=== PATIENT | female | born 1995 | race Caucasian/White ===

== ENCOUNTER 2021-03-01 08:59 | Emergency (ER) | payer MEDICAID, SELFPAY ==
--- NOTE | ~2021-03-01 | CT_ITS ---
EXAMINATION: CT ABDOMEN AND PELVIS WITHOUT CONTRAST CLINICAL INFORMATION: Abdominal pain COMPARISON: Previous CT of the abdomen and pelvis March 2010 TECHNIQUE: Multidetector volumetric imaging was performed from the superior aspect of the liver through the pubic symphysis. Sagittal and coronal reformatted images were obtained on the technologist's workstation. This CT examination was performed using dose optimization techniques as appropriate, variously including the following: *Automated exposure control *Adjustment of mA and/or kV according to patient size (this includes techniques or standardized protocols for targeted exams where dose is matched to indication/reason for exam; i.e. extremities or head) *Use of iterative reconstruction technique DLP: 316 mGy-cm FINDINGS: LUNG BASES: The visualized lung bases are unremarkable. LIVER, GALLBLADDER, AND BILIARY TREE: The liver is normal in size, shape, and attenuation. No focal hepatic lesion or biliary ductal dilatation is present. The gallbladder is unremarkable with no evidence of radiopaque gallstones, gallbladder wall thickening, or obvious pericholecystic inflammatory changes. PANCREAS: Unremarkable. SPLEEN: Unremarkable. ADRENAL GLANDS: Unremarkable. KIDNEYS AND URETERS: The kidneys are normal in size, shape, and attenuation. No hydronephrosis, hydroureter, or calculi seen. No perinephric stranding. BLADDER: Unremarkable. GASTROINTESTINAL TRACT: The small and large bowel are unremarkable. The appendix is unremarkable. ABDOMINAL WALL: No significant hernia is appreciated. LYMPH NODES: Normal. VASCULAR: Unremarkable. PELVIC VISCERA: There is an IUD in the uterus. The position of the IUD may be slightly high. Uterus and adnexa are otherwise unremarkable. No fluid is seen in the pelvis. OSSEOUS STRUCTURES: Unremarkable. CT/CT abdomen pelvis wo con IMPRESSION: IUD in the uterus. The position of the IUD may be slightly high. Otherwise unremarkable exam. Fleischner guidelines were followed.
[2021-03-01 09:07] VITALS: BP 135/96; PULSE 100; RESP 19; TEMP 36.6; O2SAT 99; BMI 19.5
[2021-03-01] MEDS: Ondansetron ODT 4 MG TAB.RAPDIS TRANSLINGU (10:30)
[2021-03-01 10:53] LABS: MANUAL DIFF FLAG NO
[2021-03-01 11:01] LABS: Basophils Absolute Auto 0.1 X10*3/uL (0.0-0.2); Basophils Percent Auto 0.4 % (0-2); Eosinophils Percent Auto 0.1 % (0-4); Hematocrit 40.3 % (37.0-47.0); Hemoglobin 13.9 g/dl (12.0-16.0); Imm Gran Abs Auto 0.04 X10*3/uL (0.00-0.03); Imm Gran Pct Auto 0.3 % (0.0-0.4); Lymphocytes Absolute Auto 1.4 X10*3/uL (1.2-4.9); Lymphocytes Percent Auto 11.3 % (20-40); Mean Corpuscular HGB Conc 34.5 g/dl (31.0-35.0); Mean Corpuscular Hemoglobin 31.4 pg (27.0-33.0); Monocytes Absolute Auto 0.3 X10*3/uL (0.1-1.2); Monocytes Percent Auto 2.7 % (2-11); Neutrophils Absolute Auto 10.4 x10*3/uL (2.0-8.3); Neutrophils Percent Auto 85.2 % (45-73); Platelet Count 257 X10*3/uL (160-400); Red Blood Count 4.43 X10*6/uL (4.20-5.50); Red Cell Distribution Width 12.3 % (11.0-16.0); White Blood Count 12.2 X10*3/uL (4.8-10.8)
[2021-03-01 11:12] LABS: COVID-19 Test Negative (Negative); IDNOW Serial# 9DD0AD1C
[2021-03-01 11:34] LABS: Alanine Aminotransferase 12 U/L (0-31); Albumin Level 4.6 g/dL (3.5-5.0); Alkaline Phosphatase 61 U/L (39-117); Anion Gap 17 (12-20); Aspartate Amino Transferase 18 U/L (5-31); Bilirubin Direct 0.4 mg/dL (0.0-0.5); Bilirubin Total 0.8 mg/dL (0.0-1.0); Blood Urea Nitrogen 16 mg/dL (9-16); Calcium 10.1 mg/dL (8.4-10.2); Carbon Dioxide 19 mmol/L (22-29); Chloride 106 mmol/L (96-108); Creatinine Clr Calc Pharmacy 81.9; Estimated Glomerular Filt Rate > 60; Glucose Random 140 mg/dL (60-115); Lipase 11 U/L (8-78); Potassium 3.9 mmol/L (3.3-5.1); Sodium 138 mmol/L (135-145); Total Protein 7.5 g/dL (6.5-8.0)
--- NOTE | 2021-03-01 13:09 | ED.GENADULT ---
HPI - General Adult General Chief complaint: Nausea/Vomiting/Diarrhea Stated complaint: vomiting Time Seen by Provider: 03/01/21 09:54 Source: patient and RN notes reviewed Mode of arrival: ambulatory Limitations: no limitations History of Present Illness HPI narrative: 25 years old female is here today for complaining of nausea and vomiting. Patient reports that she went out last night had 2 margaritas, pizza and during the night patient reports that she started vomiting and having a diarrhea with diffuse abdominal cramping. Patient reports that she has been under a lot of stress, just recently lost her job and broke up with her boyfriend. Patient moved back to her parent's house to her old bedroom. Patient denies any SI or HI. Denies any fever or chills. Denies any ill contacts. Patient reports that she moves her bowels daily except for when she started having diarrhea last night. Patient reports that she vomited several times. Denies any melena, hematochezia, unintentional weight loss or ribbon like stools. Patient denies any urinary symptoms. Patient denies any chest pain, palpitations, presyncope or syncope. Onset (ago): hour(s) Location: abdomen Radiation: non-radiation Severity: moderate Severity scale (1-10): 9 Quality: burning Pain Consistency: intermittent Relieving factors: none Exacerbating factors: none Related Data Previous Rx's Medication Instructions Recorded nitrofurantoin macrocrystal 100 mg 100 mg PO BID #20 cap 03/01/21 capsule ondansetron 4 mg disintegrating 4 mg PO Q8H PRN #20 tab 03/01/21 tablet Allergies Allergy/AdvReac Type Severity Reaction Status Date / Time amoxicillin [AMOXICILLIN] Allergy Unknown RASH Verified 03/01/21 14:43 Iodinated Contrast Media Allergy Unknown Verified 03/01/21 14:43 shellfish derived Allergy Unknown Verified 03/01/21 14:43 Review of Systems Review of Systems: Constitutional : No Weight loss, No Fever, No Chills, No Night Sweats, No Fatigue, No Malaise ENT/Mouth : No Hearing loss, No Ear Pain, No Nasal Congestion, No Sinus Pain, No Hoarseness, No sore throat, No Rhinorrhea, No Swallowing Difficulty Eyes: No Eye Pain, No Swelling, No Redness, No Foreign Body, No Discharge, No Vision Changes Cardiovascular : No Chest Pain, No SOB, No Dyspnea on Exertion, No Orthopnea, No Edema, No Palpitations Respiratory : No Cough, No Sputum, No Wheezing, No Smoke Exposure, No Dyspnea Gastrointestinal : Nausea, Vomiting, Diarrhea, No Constipation, abdominal Pain, No Hematochezia, No Melena Genitourinary : no irregular bleeding, No Dysuria, No Urinary Frequency, No Hematuria, No Urinary Incontinence, No Urgency, No Flank Pain, No Urinary Flow Changes, No Hesitancy Musculoskeletal : No joint pain, No Myalgias, No Joint Swelling Skin : No Skin Lesions, No rash Neuro : No Weakness, No Numbness, No Paresthesias, No Loss of Consciousness, No Dizziness, No Headache Psych : No Anxiety/Panic, No Depression, No SI/HI/AH/VH, No Social Issues, Yes all other systems are reviewed and are negative [facility] Social History Social History Alcohol intake: never Patient Tobacco Use Status: Never used Tobacco Substance Use Type: Marijuana Advance Directives: No Advance Directives Information Provided: No Physical Exam Vital Signs: Vital Signs: Last Vital Signs Temp 98.6 F 03/01/21 16:21 Pulse 85 03/01/21 16:21 Resp 16 03/01/21 16:21 BP 141/97 H 03/01/21 16:21 Pulse Ox 100 03/01/21 16:21 BMI result Body Mass Index 19.5 Const: General: healthy appearing, no acute distress and well developed Nutritional Appearance: well nourished Orientation/consciousness: patient oriented x3 HENMT: Head: Yes normal to inspection, Yes normocephalic and Yes atraumatic Face and sinus: Yes normal facial exam Mouth: Normal oral and palatal mucosa present Throat: Yes posterior oropharynx normal, Yes tonsils normal and Yes uvula midline Eyes: General: appearance normal, both eyes and all related structures Neck: Neck: Yes normal visual inspection, Yes full ROM and Yes trachea midline Thyroid: Thyroid normal Resp: Effort & Inspection: normal respiratory effort, able to speak in complete sentences, no tracheal deviation and symmetric chest movement Auscultation: clear to auscultation bilaterally Cardio: Jugular venous distension: no JVD Rate: regular rate Heart sounds: S1 normal heart sound present, S2 normal heart sound present, no gallops and no murmurs GI: Inspection: Yes normal to inspection and No distended Palpation (GI): Soft to palpation, not firm, Tenderness to palpation present (GI) (Whole abdomen) and No hepatosplenomegaly present Auscultation: normal bowel sounds : General: Yes no CVA tenderness Back/Spine/Pelvis: Back: no CVA tenderness Skin: General skin exam: elasticity normal, turgor normal and dry skin Neuro: General: patient oriented x3 Psych: Appearance: grossly normal Mental Status: mental status grossly normal Speech and movement: Normal speech and movement present Affect: normal affect Attitude: cooperative Thought process: Normal thought process present Thought content: Normal thought content present Insight: Good insight present (Psych) Judgement: Good judgement present (Psych) Course Course Course Narrative: 25 year old female is here today with nausea, vomiting, diarrhea. Patient went out last night eat pizza and had 2 margaritas woke up in the middle of the night with vomiting. Patient also had diarrhea several times. Denies any urinary symptoms. Patient reports that she smoked marijuana last night as well. Reports of diffuse abdominal pain in her whole abdomen. Patient reports that she smoked marijuana in the past and never felt like that. Patient recently going under lot of stress, losing her job breaking up with her boyfriend and moving back to her parent's house to her old bedroom. Labs done in the waiting room, patient has mild leukocytosis WBC 12.2 most likely from vomiting. For lipase is negative. All other labs are unremarkable. Will check patient's urine, give her Zofran and Protonix and fluids. Patient unable to urinate. Reports that she feels dehydrated Reevaluation(s) Reevaluation #1: Urinalysis back, positive high nitrate, 3+ urine bacteria, will treat her with Macrodantin, exam was negative for CVA tenderness. Patient reports that she is feeling better, however continues to have diffuse abdominal pain. Will do abdominal and pelvic CT scan. Rule out diverticulitis, colitis. Negative McBurney and You sign. Reevaluation #2: CT scan negative for any acute findings. Patient continues to feel nauseous, will give her Reglan 5 mg IV. Then GI cocktail Reevaluation #3: Will medicate her with another dose of Zofran for nausea. No active vomiting. Patient was able to tolerate p.o. fluids and medication. Patient will be discharged home. Spoke with patient's mom per patient's permission and she will come and pick her up. Encourage patient to take Zofran on as needed basis. Patient was educated to finish all of her antibiotics. She was encouraged to return to emergency department if she continues to vomit. Discussed with patient avoidance of smoking marijuana Medical Decision Making Lab Data Result diagrams: 03/01/21 10:46 03/01/21 10:46 Labs: Lab Results 03/01/21 03/01/21 03/01/21 Range/Units 10:46 10:46 10:46 WBC 12.2 H (4.8-10.8) X10*3/uL RBC 4.43 (4.20-5.50) X10*6/uL Hgb 13.9 (12.0-16.0) g/dl Hct 40.3 (37.0-47.0) % MCV 91.0 (80.0-98.0) fL MCH 31.4 (27.0-33.0) pg MCHC 34.5 (31.0-35.0) g/dl RDW 12.3 (11.0-16.0) % Plt Count 257 (160-400) X10*3/uL MPV 12.0 (9.4-12.3) fL Immature Gran % (Auto) 0.3 (0.0-0.4) % Neut % (Auto) 85.2 H (45-73) % Lymph % (Auto) 11.3 L (20-40) % [place] % (Auto) 2.7 (2-11) % Eos % (Auto) 0.1 (0-4) % Baso % (Auto) 0.4 (0-2) % Lymph # (Auto) 1.4 (1.2-4.9) X10*3/uL [place] # (Auto) 0.3 (0.1-1.2) X10*3/uL Eos # (Auto) 0.0 (0.0-0.4) X10*3/uL Baso # (Auto) 0.1 (0.0-0.2) X10*3/uL Abs Immat Gran (auto) 0.04 H (0.00-0.03) X10*3/uL Absolute Neuts (auto) 10.4 H (2.0-8.3) x10*3/uL Absolute Nucleated RBC 0.000 (0.0-0.012) X10*3/uL Nucleated RBC % (auto) 0.0 (0.0-0.2) /100WBC Sodium 138 (135-145) mmol/L Potassium 3.9 (3.3-5.1) mmol/L Chloride 106 (96-108) mmol/L Carbon Dioxide 19 L (22-29) mmol/L Anion Gap 17 (12-20) BUN 16 (9-16) mg/dL Creatinine 0.82 (0.5-1.4) mg/dL Estim Creat Clear Calc 81.9 Estimated GFR > 60 Random Glucose 140 H (60-115) mg/dL Calcium 10.1 (8.4-10.2) mg/dL Total Bilirubin 0.8 (0.0-1.0) mg/dL Direct Bilirubin 0.4 (0.0-0.5) mg/dL AST 18 (5-31) U/L ALT 12 (0-31) U/L Alkaline Phosphatase 61 (39-117) U/L Total Protein 7.5 (6.5-8.0) g/dL Albumin 4.6 (3.5-5.0) g/dL Lipase 11 (8-78) U/L Urine Color Urine Appearance Urine pH (5.0-8.0) Ur Specific [place] (1.005-1.025) Urine Protein (NEG-TRACE) MG/DL Urine Glucose (UA) (NEG) MG/DL Urine Ketones (NEG) MG/DL Urine Blood (NEG) Urine Nitrite (NEG) Ur Leukocyte Esterase (NEG) Urine RBC (0) /HPF Urine WBC (0-4) /HPF Ur Squamous Epith Cells /LPF Urine Bacteria /LPF Urine Mucus /LPF Urine Test (NEGATIVE) COVID-19 (RD) Negative (Negative) COVID-19 Clin Com See Note 03/01/21 03/01/21 03/01/21 Range/Units 15:27 15:27 15:42 WBC (4.8-10.8) X10*3/uL RBC (4.20-5.50) X10*6/uL Hgb (12.0-16.0) g/dl Hct (37.0-47.0) % MCV (80.0-98.0) fL MCH (27.0-33.0) pg MCHC (31.0-35.0) g/dl RDW (11.0-16.0) % Plt Count (160-400) X10*3/uL MPV (9.4-12.3) fL Immature Gran % (Auto) (0.0-0.4) % Neut % (Auto) (45-73) % Lymph % (Auto) (20-40) % [place] % (Auto) (2-11) % Eos % (Auto) (0-4) % Baso % (Auto) (0-2) % Lymph # (Auto) (1.2-4.9) X10*3/uL [place] # (Auto) (0.1-1.2) X10*3/uL Eos # (Auto) (0.0-0.4) X10*3/uL Baso # (Auto) (0.0-0.2) X10*3/uL Abs Immat Gran (auto) (0.00-0.03) X10*3/uL Absolute Neuts (auto) (2.0-8.3) x10*3/uL Absolute Nucleated RBC (0.0-0.012) X10*3/uL Nucleated RBC % (auto) (0.0-0.2) /100WBC Sodium (135-145) mmol/L Potassium (3.3-5.1) mmol/L Chloride (96-108) mmol/L Carbon Dioxide (22-29) mmol/L Anion Gap (12-20) BUN (9-16) mg/dL Creatinine (0.5-1.4) mg/dL Estim Creat Clear Calc Estimated GFR Random Glucose (60-115) mg/dL Calcium (8.4-10.2) mg/dL Total Bilirubin (0.0-1.0) mg/dL Direct Bilirubin (0.0-0.5) mg/dL AST (5-31) U/L ALT (0-31) U/L Alkaline Phosphatase (39-117) U/L Total Protein (6.5-8.0) g/dL Albumin (3.5-5.0) g/dL Lipase (8-78) U/L Urine Color YELLOW Urine Appearance CLOUDY Urine pH 6.5 (5.0-8.0) Ur Specific [place] 1.020 (1.005-1.025) Urine Protein NEG (NEG-TRACE) MG/DL Urine Glucose (UA) NEG (NEG) MG/DL Urine Ketones >=80 (NEG) MG/DL Urine Blood TRACE (NEG) Urine Nitrite POS H (NEG) Ur Leukocyte Esterase NEG (NEG) Urine RBC 0-2 (0) /HPF Urine WBC 0-2 (0-4) /HPF Ur Squamous Epith Cells 1+ /LPF Urine Bacteria 3+ /LPF Urine Mucus 1+ /LPF Urine Test NEGATIVE Cancelled (NEGATIVE) COVID-19 (RD) (Negative) COVID-19 Clin Com Imaging Data CT scan - abdomen: Attestation: I personally reviewed and interpreted this imaging study as follows: Radiologist's impression: FINDINGS: LUNG BASES: The visualized lung bases are unremarkable.? LIVER, GALLBLADDER, AND BILIARY TREE: The liver is normal in size, shape, and attenuation. No focal hepatic lesion or biliary ductal dilatation is present. The gallbladder is unremarkable with no evidence of radiopaque gallstones, gallbladder wall thickening, or obvious pericholecystic inflammatory changes.? PANCREAS: Unremarkable.? SPLEEN: Unremarkable.? ADRENAL GLANDS: Unremarkable.? KIDNEYS AND URETERS: The kidneys are normal in size, shape, and attenuation. No hydronephrosis, hydroureter, or calculi seen. No perinephric stranding. ? BLADDER: Unremarkable.? GASTROINTESTINAL TRACT: The small and large bowel are unremarkable. The appendix is unremarkable.? ABDOMINAL WALL: No significant hernia is appreciated.? LYMPH NODES: Normal. VASCULAR: Unremarkable. PELVIC VISCERA: There is an IUD in the uterus. The position of the IUD may be slightly high. Uterus and adnexa are otherwise unremarkable. No fluid is seen in the pelvis. OSSEOUS STRUCTURES: Unremarkable.? Discharge Plan Discharge Clinical Impression: UTI (urinary tract infection) Qualifiers: Urinary tract infection type: site unspecified Hematuria presence: without hematuria Qualified Code(s): N39.0 - Urinary tract infection, site not specified Gastritis Qualifiers: Gastritis type: unspecified gastritis Chronicity: acute Gastritis bleeding: without bleeding Qualified Code(s): K29.00 - Acute gastritis without bleeding Patient Disposition: Home, Self-Care Instructions: Gastritis (ED), Urinary Tract Infection in Women (ED) Additional Instructions: You were seen here today for nausea and vomiting and abdominal discomfort. You were given nausea medication. Your urine test showed that you have a urinary tract infection. You were given 1st dose of antibiotics in the emergency department. You will be sent home on antibiotics twice a day for 10 days. Make sure that you finish all of the antibiotics. CT scan showed no acute processes. Please follow-up with your primary care doctor. An your OBGYN provider. CT scan showed that your IUD position might be slightly too high. You will be given nausea medicine to take every 8 hours as needed. Make sure you drinking plenty fluids. Please return to emergency department if you cannot tolerate any fluids or unable to take your antibiotics. Prescriptions: New nitrofurantoin macrocrystal 100 mg capsule 100 mg PO BID Qty: 20 RF: 0 ondansetron 4 mg tablet,disintegrating 4 mg PO Q8H PRN (Reason: nausea and vomiting) Qty: 20 RF: 0 Interventions: ED Discharge Assessment Last Done: 03/01/21 21:07 Discharge Date/Time: 03/01/21 21:09
[2021-03-01] MEDS: 0.9 % Sodium Chloride 1,000 ML 999 ML IV ×2 (13:33→17:50)
[2021-03-01 13:44] VITALS: BP 142/93; PULSE 94; RESP 16; TEMP 37.4; O2SAT 99
[2021-03-01] MEDS: Pantoprazole Sodium 40 MG/10 ML VIAL IVPUSH (14:39)
[2021-03-01 14:42] VITALS: BP 140/83; PULSE 94; RESP 18; TEMP 36.6; O2SAT 98
--- NOTE | 2021-03-01 14:43 | PC.NURSE ---
skin pwd. no longer actively vomiting. moist mm. abd soft non tender
[2021-03-01] MEDS: ondansetron HCL 4 MG/2 ML VIAL IVPUSH ×2 (14:46→20:36)
[2021-03-01 15:36] LABS: Appearance Urine CLOUDY; Color Urine YELLOW; Glucose Urine UA NEG (NEG); Leukocyte Esterase Urine NEG (NEG); Nitrite Urine POS (NEG); PH 6.5 (5.0-8.0); UACC Culture Trigger YES; Urine Blood TRACE (NEG); Urine Ketones >=80 MG/DL (NEG); Urine Protein NEG (NEG-TRACE)
[2021-03-01 15:40] LABS: Urine Pregnancy NEGATIVE (NEGATIVE)
[2021-03-01 15:41] LABS: UPreg QC Valid YES
[2021-03-01 15:47] LABS: Bacteria Urine 3+ /LPF; Mucus Urine 1+ /LPF; RBC Urine 0-2 /HPF (0); Squamous Epithelial Cell Urine 1+ /LPF; WBC Urine 0-2 /HPF (0-4)
[2021-03-01 16:21] VITALS: BP 141/97; PULSE 85; RESP 16; TEMP 37; O2SAT 100
--- NOTE | 2021-03-01 16:55 | PC.NURSE ---
continues to vomit. tried some po fluids from home but didn't pass po challenge. this rn requesting additional nausea meds from provider.
[2021-03-01] MEDS: nitrofurantoin macrocrystaL 50 MG CAPSULE 100 MG PO (17:50)
[2021-03-01] MEDS: Metoclopramide HCl 10 MG/2 ML VIAL 5 MG IVPUSH (17:50)
--- NOTE | 2021-03-01 18:28 | PC.NURSE ---
reports slight improvement
[2021-03-01] MEDS: Magnesium Hydrox/Alum Hydrox 30 ML ORAL.SUSP 15 ML PO (19:38)
[2021-03-01] MEDS: Lidocaine HCl Viscous 2 % 15 ML SOLUTION MUCOUS MEM (19:39)
== END 2021-03-01 21:09 | disposition home or self-care (01) ==
PROVIDERS: Nurse Practitioner Family; Emergency Provider Internal Medicine
DX: N39.0 Urinary tract infection, site not specified (principal); K29.00 Acute gastritis without bleeding; Z20.822 Contact with and (suspected) exposure to COVID-19; R11.2 Nausea with vomiting, unspecified; F12.90 Cannabis use, unspecified, uncomplicated
CPT/HCPCS: 74176; 80048; 80076; 81001; 81025; 83690; 85025; 87086; 87635; 96361; 96374; 96375; 96376; 99284; J2405; J2765

== ENCOUNTER 2021-03-02 08:41 | Emergency (ER) | payer MEDICAID, SELFPAY ==
[2021-03-02 09:08] VITALS: RESP 14; BMI 20.1
--- NOTE | 2021-03-02 09:12 | ECG_ITS ---
Test Reason : chest pain Blood Pressure : / mmHG Vent. Rate : 090 BPM Atrial Rate : 090 BPM P-R Int : 192 ms QRS Dur : 078 ms QT Int : 374 ms P-R-T Axes : 069 079 056 degrees QTc Int : 457 ms Normal sinus rhythm with sinus arrhythmia Normal ECG No previous ECGs available Referred By: Generic ED Physician Electronically Signed By:Ruben Ignacio
[2021-03-02] MEDS: Ondansetron ODT 4 MG TAB.RAPDIS TRANSLINGU (09:16)
[2021-03-02 09:17] VITALS: BP 150/67; PULSE 103; RESP 14; TEMP 37.2; O2SAT 100
[2021-03-02 09:27] LABS: MANUAL DIFF FLAG NO
[2021-03-02 09:28] LABS: Basophils Percent Auto 0.1 % (0-2); Hematocrit 40.3 % (37.0-47.0); Imm Gran Abs Auto 0.05 X10*3/uL (0.00-0.03); Imm Gran Pct Auto 0.4 % (0.0-0.4); Lymphocytes Absolute Auto 1.3 X10*3/uL (1.2-4.9); Lymphocytes Percent Auto 9.6 % (20-40); Mean Corpuscular HGB Conc 34.7 g/dl (31.0-35.0); Mean Corpuscular Hemoglobin 31.1 pg (27.0-33.0); Mean Corpuscular Volume 89.6 fL (80.0-98.0); Mean Platelet Volume 11.5 fL (9.4-12.3); Monocytes Absolute Auto 0.7 X10*3/uL (0.1-1.2); Monocytes Percent Auto 5.2 % (2-11); Neutrophils Absolute Auto 11.7 x10*3/uL (2.0-8.3); Neutrophils Percent Auto 84.7 % (45-73); Platelet Count 253 X10*3/uL (160-400); Red Cell Distribution Width 12.2 % (11.0-16.0); White Blood Count 13.8 X10*3/uL (4.8-10.8)
[2021-03-02 09:41] LABS: Anion Gap 17 (12-20); Blood Urea Nitrogen 17 mg/dL (9-16); Calcium 9.9 mg/dL (8.4-10.2); Carbon Dioxide 21 mmol/L (22-29); Chloride 104 mmol/L (96-108); Estimated Glomerular Filt Rate > 60; Glucose Random 93 mg/dL (60-115); Sodium 138 mmol/L (135-145)
== END 2021-03-02 14:57 | disposition left against medical advice (07) ==
PROVIDERS: Emergency Provider Emergency Medicine
DX: R10.9 Unspecified abdominal pain (principal); R07.89 Other chest pain; R11.2 Nausea with vomiting, unspecified; Z79.899 Other long term (current) drug therapy
CPT/HCPCS: 36415; 80048; 85025; 93005; 99283

== ENCOUNTER 2021-03-03 07:38 | Emergency (ER) | payer MEDICAID, SELFPAY ==
--- NOTE | ~2021-03-03 | US_ITS ---
EXAMINATION: APPENDIX ULTRASOUND CLINICAL INFORMATION: Periumbilical and right lower quadrant pain COMPARISON: Previous CT of the abdomen and pelvis 03/01/2021 TECHNIQUE: Grayscale and color imaging of the right lower quadrant FINDINGS: The appendix is not identified. No abnormal loops of bowel ascites or adenopathy is seen. The right ovary and right kidney are normal appearing. US/US appendix IMPRESSION: Appendix not seen by ultrasound.
[2021-03-03 08:02] VITALS: BP 137/95; PULSE 83; RESP 16; TEMP 36.8; O2SAT 95; BMI 20.1
--- NOTE | 2021-03-03 09:09 | ED.ABDPAIN ---
HPI - Abdominal Pain General Chief Complaint: Abdominal Pain Stated Complaint: Nausea/vomiting Time Seen by Provider: 03/03/21 08:56 Source: patient Mode of arrival: ambulatory Limitations: no limitations History of Present Illness HPI narrative: 25 y/o female presenting to the ER for 3rd day in a row with nausea, vomiting and periumbilical abdominal pain. She was seen here on 03/01 and 03/02 - had negative CT abdomen with labs showing mild leukocytosis and UA showing infection. She was discharged with Macrobid and Zofran but has not been able to consistently take the antibiotic because of vomiting. She denies fevers but reports chills. She has not been able to tolerate anything by mouth in the last 3 days. She has been taking the Zofran without effect. No known sick contacts. No one else at home is ill. She also reports multiple episodes of diarrhea yesterday as well, nonbloody. MD elicited complaint: abdominal pain Pertinent past history: none Onset (ago): day(s) (3) Pain Consistency: constant Location: periumbilical Severity: severe Quality: stabbing Radiation: LLQ and RLQ Migration to: no migration Exacerbating factors: eating Relieving factors: nothing Associated symptoms: nausea, vomiting, diarrhea and chills Related Data Patient : No Previous Rx's Medication Instructions Recorded nitrofurantoin macrocrystal 100 mg 100 mg PO BID #20 cap 03/01/21 capsule ondansetron 4 mg disintegrating 4 mg PO Q8H PRN #20 tab 03/01/21 tablet metoclopramide HCl 5 mg tablet 5 mg PO Q6H PRN #10 tab 03/03/21 (Reglan) Allergies Allergy/AdvReac Type Severity Reaction Status Date / Time amoxicillin [AMOXICILLIN] Allergy Unknown RASH Verified 03/01/21 14:43 Iodinated Contrast Media Allergy Unknown Verified 03/01/21 14:43 shellfish derived Allergy Unknown Verified 03/01/21 14:43 Review of Systems Review of Systems Constitutional: No Fever, + Chills ENT/Mouth: No sore throat, No Rhinorrhea, No Swallowing Difficulty Cardiovascular: No Chest Pain, No SOB, No Orthopnea, No Edema Respiratory: No Cough, No Sputum, No Wheezing, No dyspnea Gastrointestinal: + Nausea, + Vomiting, + Diarrhea, + abdominal Pain, No Hematochezia, No Melena Genitourinary: No Dysuria, No Urinary Frequency, No Hematuria Musculoskeletal: No joint pain, No Myalgias Skin: No Skin Lesions, No rash Neuro: No Weakness, No Numbness, No Dizziness, No Headache Psych: No Anxiety/Panic, No Depression Heme/Lymph: No Bruising, No Lymphadenopathy Endocrine: No Polyuria, No Polydipsia Physical Exam Vital Signs: Vital Signs: Last Vital Signs Temp 99.3 F 03/03/21 11:13 Pulse 92 03/03/21 11:13 Resp 18 03/03/21 11:13 BP 135/94 H 03/03/21 11:13 Pulse Ox 100 03/03/21 11:13 BMI result Body Mass Index 20.1 Appearance: Alert. Oriented X3. Appears to be in pain Eyes: Pupils equal, round and reactive to light. ENT: Pharynx normal. Neck: Normal inspection. Neck supple. CVS: Normal heart rate and rhythm. Pulses normal. Respiratory: No respiratory distress. Breath sounds normal. Abdomen: Soft with periumbilical and RLQ tenderness with guarding, no rebound. normal +BS x4 Skin: Skin warm and dry. Normal skin color. Normal skin turgor. No rashes. Extremities: No lower extremity edema. Neuro: Oriented X 3. No motor deficit. No sensory deficit. Course Course Course Narrative: 25 y/o female presenting to the ER with N/V/D and abdominal pain x3 days. She had a negative CT 03/01 and a +UA. Her labs did show a leukocytosis of 13.8. She has lower abdominal tenderness including RLQ >LLQ. CT did not show any appendix inflammatory changes. Will get follow up ultrasound to further assess. Reevaluation(s) Reevaluation #1: Labs today showing improved WBC 11.5. No further vomiting. She was given Reglan and morphine with good effect. UA negative for infection. She is feeling better. Trying ice chips. Reevaluation #2: Patient is tolerating PO. Most likely gastroenteritis. She is stable for d/c home with supportive care - will give her rx for reglan as zofran has been ineffective at home. MDM - Abdominal Pain Lab Data Result diagrams: 03/03/21 09:22 03/03/21 09:22 Labs: Lab Results 01/24/22 01/24/22 01/24/22 Range/Units 09:21 09:22 09:22 WBC 11.5 H (4.8-10.8) X10*3/uL RBC 4.62 (4.20-5.50) X10*6/uL Hgb 15.1 (12.0-16.0) g/dl Hct 42.6 (37.0-47.0) % MCV 92.2 (80.0-98.0) fL MCH 32.7 (27.0-33.0) pg MCHC 35.4 H (31.0-35.0) g/dl RDW 12.6 (11.0-16.0) % Plt Count 211 (160-400) X10*3/uL MPV 11.3 (9.4-12.3) fL Immature Gran % (Auto) 0.3 (0.0-0.4) % Neut % (Auto) 83.2 H (45-73) % Lymph % (Auto) 11.1 L (20-40) % [place] % (Auto) 5.1 (2-11) % Eos % (Auto) 0.0 (0-4) % Baso % (Auto) 0.3 (0-2) % Lymph # (Auto) 1.3 (1.2-4.9) X10*3/uL [place] # (Auto) 0.6 (0.1-1.2) X10*3/uL Eos # (Auto) 0.0 (0.0-0.4) X10*3/uL Baso # (Auto) 0.0 (0.0-0.2) X10*3/uL Abs Immat Gran (auto) 0.04 H (0.00-0.03) X10*3/uL Absolute Neuts (auto) 9.6 H (2.0-8.3) x10*3/uL Absolute Nucleated RBC 0.000 (0.0-0.012) X10*3/uL Nucleated RBC % (auto) 0.0 (0.0-0.2) /100WBC Sodium 138 (135-145) mmol/L Potassium 3.4 (3.3-5.1) mmol/L Chloride 102 (96-108) mmol/L Carbon Dioxide 23 (22-29) mmol/L Anion Gap 16 (12-20) BUN 23 H (9-16) mg/dL Creatinine 0.89 (0.5-1.4) mg/dL Estim Creat Clear Calc 75.4 Estimated GFR > 60 Random Glucose 86 (60-115) mg/dL Calcium 9.5 (8.4-10.2) mg/dL Magnesium 2.4 (1.6-2.6) mg/dL Total Bilirubin 1.8 H (0.0-1.0) mg/dL Direct Bilirubin 0.6 H (0.0-0.5) mg/dL AST 19 (5-31) U/L ALT 13 (0-31) U/L Alkaline Phosphatase 58 (39-117) U/L Total Protein 7.5 (6.5-8.0) g/dL Albumin 4.6 (3.5-5.0) g/dL Lipase 14 (8-78) U/L Urine Color Urine Appearance Urine pH (5.0-8.0) Ur Specific [place] (1.005-1.025) Urine Protein (NEG-TRACE) MG/DL Urine Glucose (UA) (NEG) MG/DL Urine Ketones (NEG) MG/DL Urine Blood (NEG) Urine Nitrite (NEG) Ur Leukocyte Esterase (NEG) Urine RBC (0) /HPF Urine WBC (0-4) /HPF Ur Squamous Epith Cells /LPF Urine Bacteria /LPF Urine Mucus /LPF Urine Test (NEGATIVE) Urine Opiates Screen (Not Detect) Urine Fentanyl Screen (Not Detect) Ur Barbiturates Screen (Not Detect) Ur Phencyclidine Scrn (Not Detect) Ur Amphetamines Screen (Not Detect) U Benzodiazepines Scrn (Not Detect) Urine Cocaine Screen (Not Detect) U Marijuana (THC) Screen (Not Detect) COVID-19 (RD) Negative (Negative) COVID-19 Clin Com See Note 03/03/21 03/03/21 03/03/21 Range/Units 11:22 11:22 11:22 WBC (4.8-10.8) X10*3/uL RBC (4.20-5.50) X10*6/uL Hgb (12.0-16.0) g/dl Hct (37.0-47.0) % MCV (80.0-98.0) fL MCH (27.0-33.0) pg MCHC (31.0-35.0) g/dl RDW (11.0-16.0) % Plt Count (160-400) X10*3/uL MPV (9.4-12.3) fL Immature Gran % (Auto) (0.0-0.4) % Neut % (Auto) (45-73) % Lymph % (Auto) (20-40) % [place] % (Auto) (2-11) % Eos % (Auto) (0-4) % Baso % (Auto) (0-2) % Lymph # (Auto) (1.2-4.9) X10*3/uL [place] # (Auto) (0.1-1.2) X10*3/uL Eos # (Auto) (0.0-0.4) X10*3/uL Baso # (Auto) (0.0-0.2) X10*3/uL Abs Immat Gran (auto) (0.00-0.03) X10*3/uL Absolute Neuts (auto) (2.0-8.3) x10*3/uL Absolute Nucleated RBC (0.0-0.012) X10*3/uL Nucleated RBC % (auto) (0.0-0.2) /100WBC Sodium (135-145) mmol/L Potassium (3.3-5.1) mmol/L Chloride (96-108) mmol/L Carbon Dioxide (22-29) mmol/L Anion Gap (12-20) BUN (9-16) mg/dL Creatinine (0.5-1.4) mg/dL Estim Creat Clear Calc Estimated GFR Random Glucose (60-115) mg/dL Calcium (8.4-10.2) mg/dL Magnesium (1.6-2.6) mg/dL Total Bilirubin (0.0-1.0) mg/dL Direct Bilirubin (0.0-0.5) mg/dL AST (5-31) U/L ALT (0-31) U/L Alkaline Phosphatase (39-117) U/L Total Protein (6.5-8.0) g/dL Albumin (3.5-5.0) g/dL Lipase (8-78) U/L Urine Color YELLOW Urine Appearance CLEAR Urine pH 6.0 (5.0-8.0) Ur Specific [place] >= 1.030 H (1.005-1.025) Urine Protein TRACE (NEG-TRACE) MG/DL Urine Glucose (UA) NEG (NEG) MG/DL Urine Ketones >=80 (NEG) MG/DL Urine Blood TRACE (NEG) Urine Nitrite NEG (NEG) Ur Leukocyte Esterase NEG (NEG) Urine RBC 0-2 (0) /HPF Urine WBC 1-4 (0-4) /HPF Ur Squamous Epith Cells 1+ /LPF Urine Bacteria TRACE /LPF Urine Mucus 2+ /LPF Urine Test NEGATIVE (NEGATIVE) Urine Opiates Screen POSITIVE H (Not Detect) Urine Fentanyl Screen Not Detected (Not Detect) Ur Barbiturates Screen Not Detected (Not Detect) Ur Phencyclidine Scrn Not Detected (Not Detect) Ur Amphetamines Screen Not Detected (Not Detect) U Benzodiazepines Scrn Not Detected (Not Detect) Urine Cocaine Screen Not Detected (Not Detect) U Marijuana (THC) Screen POSITIVE H (Not Detect) COVID-19 (RD) (Negative) COVID-19 Clin Com Critical Care Time Critical Care Time Critical Care Time: No Discharge Plan Discharge Clinical Impression: Gastroenteritis Patient Disposition: Home, Self-Care Instructions: Gastroenteritis (ED) Additional Instructions: Take the prescribed medication as needed for nausea and vomiting. Do not take it at the same time as the previously prescribed Zofran. Stick to a bland diet while you are not feeling well. Rest and drink plenty of fluids. Take Motrin and/or Tylenol as needed for pain. Follow up with your doctor this week. If you develop new or worsening symptoms call 911 or come back to the ER for further evaluation. Prescriptions: New metoclopramide HCl [Reglan] 5 mg tablet 5 mg PO Q6H PRN (Reason: nausea and vomiting) Qty: 10 RF: 0 No Action nitrofurantoin macrocrystal 100 mg capsule 100 mg PO BID Qty: 20 RF: 0 ondansetron 4 mg tablet,disintegrating 4 mg PO Q8H PRN (Reason: nausea and vomiting) Qty: 20 RF: 0 PMFSH Past Medical History Medical History (Updated 03/03/21 @ 13:17 by ABEL Hdz) Asthma Social History Social History Alcohol intake: never Patient Tobacco Use Status: Never used Tobacco Use of substances other than those prescribed or required for medical reasons: Yes Substance Use Type: Marijuana Substance Use Frequency: Daily Advance Directives: No Advance Directives Information Provided: No Patient : No
[2021-03-03 09:29] LABS: MANUAL DIFF FLAG NO
[2021-03-03 09:30] LABS: Basophils Percent Auto 0.3 % (0-2); Hematocrit 42.6 % (37.0-47.0); Hemoglobin 15.1 g/dl (12.0-16.0); Imm Gran Abs Auto 0.04 X10*3/uL (0.00-0.03); Imm Gran Pct Auto 0.3 % (0.0-0.4); Lymphocytes Absolute Auto 1.3 X10*3/uL (1.2-4.9); Lymphocytes Percent Auto 11.1 % (20-40); Mean Corpuscular HGB Conc 35.4 g/dl (31.0-35.0); Mean Corpuscular Hemoglobin 32.7 pg (27.0-33.0); Mean Corpuscular Volume 92.2 fL (80.0-98.0); Mean Platelet Volume 11.3 fL (9.4-12.3); Monocytes Absolute Auto 0.6 X10*3/uL (0.1-1.2); Monocytes Percent Auto 5.1 % (2-11); Neutrophils Absolute Auto 9.6 x10*3/uL (2.0-8.3); Neutrophils Percent Auto 83.2 % (45-73); Platelet Count 211 X10*3/uL (160-400); Red Blood Count 4.62 X10*6/uL (4.20-5.50); Red Cell Distribution Width 12.6 % (11.0-16.0); White Blood Count 11.5 X10*3/uL (4.8-10.8)
[2021-03-03 09:47] LABS: COVID-19 Test Negative (Negative)
[2021-03-03] MEDS: Metoclopramide HCl 10 MG/2 ML VIAL IVPUSH (09:50)
[2021-03-03] MEDS: 0.9 % Sodium Chloride 1,000 ML 999 ML IVCONT ×2 (09:50→12:00)
[2021-03-03 09:51] LABS: Alanine Aminotransferase 13 U/L (0-31); Albumin Level 4.6 g/dL (3.5-5.0); Alkaline Phosphatase 58 U/L (39-117); Anion Gap 16 (12-20); Aspartate Amino Transferase 19 U/L (5-31); Bilirubin Direct 0.6 mg/dL (0.0-0.5); Bilirubin Total 1.8 mg/dL (0.0-1.0); Blood Urea Nitrogen 23 mg/dL (9-16); Calcium 9.5 mg/dL (8.4-10.2); Carbon Dioxide 23 mmol/L (22-29); Chloride 102 mmol/L (96-108); Creatinine Clr Calc Pharmacy 75.4; Estimated Glomerular Filt Rate > 60; Glucose Random 86 mg/dL (60-115); Lipase 14 U/L (8-78); Magnesium 2.4 mg/dL (1.6-2.6); Potassium 3.4 mmol/L (3.3-5.1); Sodium 138 mmol/L (135-145); Total Protein 7.5 g/dL (6.5-8.0)
[2021-03-03] MEDS: Morphine Sulfate 4 MG/ML CARTRIDGE IVPUSH (09:55)
--- NOTE | 2021-03-03 09:56 | PC.NURSE ---
pt alert and oriented, skin appropriate for ethnicity, pt reports having nausea/vomiting/diarrhea and mid abd pain x3 days, unable to tolerate po intake according to the pt. pt is dry heaving at the bedside, pt does report smoking marijuana daily biut has not smoked the last 4 days
--- NOTE | 2021-03-03 10:58 | PC.NURSE ---
pt resting with her eyes shut, reports feeling better pain at 5/10, no dry heaving at this time
[2021-03-03 11:13] VITALS: BP 135/94; PULSE 92; RESP 18; TEMP 37.4; O2SAT 100
[2021-03-03 11:35] LABS: Appearance Urine CLEAR; Color Urine YELLOW; Glucose Urine UA NEG (NEG); Leukocyte Esterase Urine NEG (NEG); Nitrite Urine NEG (NEG); Specific Gravity - Urine >= 1.030 (1.005-1.025); UACC Culture Trigger NO; Urine Blood TRACE (NEG); Urine Ketones >=80 MG/DL (NEG); Urine Protein TRACE MG/DL (NEG-TRACE)
[2021-03-03 11:43] LABS: UPreg QC Valid YES; Urine Pregnancy NEGATIVE (NEGATIVE)
[2021-03-03 11:48] LABS: Amphetamine Screen Urine Not Detected (Not Detect); Barbiturates, Urine Not Detected (Not Detect); Benzodiazepines Screen Urine Not Detected (Not Detect); Cannabinoid Screen Urine POSITIVE (Not Detect); Cocaine Screen Urine Not Detected (Not Detect); Fentanyl, urine Not Detected (Not Detect); Opiate Screen Urine POSITIVE (Not Detect); Phencyclidine Screen Urine Not Detected (Not Detect)
[2021-03-03 11:56] LABS: Bacteria Urine TRACE /LPF; Mucus Urine 2+ /LPF; RBC Urine 0-2 /HPF (0); Squamous Epithelial Cell Urine 1+ /LPF
[2021-03-03 13:38] VITALS: BP 138/93; PULSE 95; RESP 16; O2SAT 100
== END 2021-03-03 13:40 | disposition home or self-care (01) ==
PROVIDERS: Physician Assistant; Emergency Provider Emergency Medicine
DX: K52.9 Noninfective gastroenteritis and colitis, unspecified (principal); Z20.822 Contact with and (suspected) exposure to COVID-19; R10.30 Lower abdominal pain, unspecified; F12.90 Cannabis use, unspecified, uncomplicated
CPT/HCPCS: 76705; 80048; 80076; 80307; 81001; 81025; 83690; 83735; 85025; 87635; 96361; 96374; 96375; 99284; J2270; J2765

== ENCOUNTER 2021-03-04 15:51 | Observation (INO) | payer MEDICAID, SELFPAY ==
[2021-03-04 16:15] VITALS: BP 144/89; BP 147/78; PULSE 101; PULSE 77; RESP 18; TEMP 37.2; O2SAT 100; BMI 20.1
[2021-03-04 16:18] LABS: Glucose, Whole Blood 87 mg/dL (60-115)
--- NOTE | 2021-03-04 16:27 | ED.NAVMDI ---
HPI - Nausea/Vomiting/Diarrhea General Chief complaint: Nausea/Vomiting/Diarrhea Stated complaint: abd pain Source: patient Mode of arrival: ambulatory Limitations: no limitations History of Present Illness HPI Narrative: 25-year-old female presents for intractable nausea vomiting and abdominal pain. This is her 3rd presentation in the past 3 days for similar circumstances. Patient has not been able to tolerate p.o. intake over the past 24 hours. MD elicited complaint: nausea, vomiting and abdominal pain Pertinent past history: cyclical vomiting Onset (ago): day(s) Description of vomiting: watery and bilious Associated nausea: Yes Associated abdominal pain: Yes Location of pain: diffuse Pain consistency: constant Severity: severe Pain scale (0-10): 10 Quality: cramping and aching Exacerbating factors: vomiting Relieving factors: none Context: marijuana use Associated symptoms: loss of appetite, nausea/vomiting and fatigue Related Data Previous Rx's Medication Instructions Recorded nitrofurantoin macrocrystal 100 mg 100 mg PO BID #20 cap 03/01/21 capsule ondansetron 4 mg disintegrating 4 mg PO Q8H PRN #20 tab 03/01/21 tablet metoclopramide HCl 5 mg tablet 5 mg PO Q6H PRN #10 tab 03/03/21 (Reglan) Allergies Allergy/AdvReac Type Severity Reaction Status Date / Time amoxicillin [AMOXICILLIN] Allergy Unknown RASH Verified 03/04/21 16:15 Iodinated Contrast Media Allergy Unknown Verified 03/04/21 16:15 shellfish derived Allergy Unknown Verified 03/04/21 16:15 Review of Systems Review of Systems: Constitutional: No Weight loss, No Fever, No Chills, No Night Sweats, No Fatigue, No Malaise ENT/Mouth: No Hearing loss, No Ear Pain, No Nasal Congestion, No Sinus Pain, No Hoarseness, No sore throat, No Rhinorrhea, No Swallowing Difficulty Eyes: No Eye Pain, No Swelling, No Redness, No Foreign Body, No Discharge, No Vision Changes Cardiovascular: No Chest Pain, No SOB, No Dyspnea on Exertion, No Orthopnea, No Edema, No Palpitations Respiratory: No Cough, No Sputum, No Wheezing, No Smoke Exposure, No Dyspnea Gastrointestinal: Positive Nausea, Positive Vomiting, no Diarrhea, positive abdominal Pain, No Hematochezia, No Melena Genitourinary: no irregular bleeding, No Dysuria, No Urinary Frequency, No Hematuria, No Urinary Incontinence, No Urgency, No Flank Pain, No Urinary Flow Changes, No Hesitancy Musculoskeletal: No joint pain, No Myalgias, No Joint Swelling Skin: No Skin Lesions, No rash Neuro: No Weakness, No Numbness, No Paresthesias, No Loss of Consciousness, No Dizziness, No Headache Psych: No Anxiety/Panic, No Depression, No SI/HI/AH/VH, No Social Issues Heme/Lymph: No Bruising, No Bleeding,No Lymphadenopathy Endocrine: No Polyuria, No Polydipsia, No Temperature Intolerance Yes all other systems are reviewed and are negative Gastrointestinal: Gastrointestinal: Reports nausea PMFSH Past Medical History Attestation statement: The following information was validated with the patient. Source: old records reviewed Medical History Asthma Social History Social History Alcohol intake: never Patient Tobacco Use Status: Never used Tobacco Use of substances other than those prescribed or required for medical reasons: No Substance Use Type: Marijuana Advance Directives: No Advance Directives Information Provided: No Physical Exam Vital Signs: Vital Signs: Last Vital Signs Temp 99.0 F 03/04/21 19:47 Pulse 82 03/04/21 19:47 Resp 16 03/04/21 19:47 BP 142/97 H 03/04/21 19:47 Pulse Ox 100 03/04/21 19:47 BMI result Body Mass Index 20.1 Appearance: Alert. Oriented X3. Moderate distress. In position. Eyes: Pupils equal, round and reactive to light. Sclera nonicteric. ENT: Pharynx normal. Dry mucous membranes. Neck: Normal inspection. Neck supple. No nuchal rigidity. CVS: Normal heart rate and rhythm. Pulses normal. Respiratory: No respiratory distress. Breath sounds normal. Abdomen: Soft and diffusely tender without rigidity, distention, negative You, McBurney and Rovsing. Skin: Skin warm and dry. Normal skin color. Normal skin turgor. Extremities: No lower extremity edema. Moves all extremities against resistance. Neuro: No motor deficit. No sensory deficit. Cranial nerves 2-12 intact. Course Course Course Narrative: 25-year-old female presents with recurrent nausea and vomiting. Was seen in this emergency department on 03/01/2021, 03/03/2021 and presents today with similar symptoms. States the medications were ineffective. Review of records indicates negative CT and negative ultrasound yesterday. Will repeat lab values. Will give Reglan Benadryl, sumatriptan IM, fluids and reassess. 6:30 p.m. RN updated this [employer] that patient still feels poorly. Order for Ativan 0.5 mg IV push. 7:45 p.m. patient states that she does not feel any better, discussion with hospitalist, plan is to admit for intractable nausea and vomiting. Consultations Consultation #1: Lila Time: 20:05 MDM - Nausea/Vomiting/Diarrhea Differential Diagnosis Differential diagnosis: Likely gastroenteritis, drug-induced nausea and vomiting and dehydration Medical Records Attestation: I reviewed the patient's medical records. Lab Data Attestation: I reviewed the patient's lab results. Result diagrams: 03/04/21 18:31 03/04/21 18:31 Labs: Lab Results 03/04/21 03/04/21 03/04/21 Range/Units 16:15 18:31 18:31 WBC 8.0 (4.8-10.8) X10*3/uL RBC 4.32 (4.20-5.50) X10*6/uL Hgb 13.8 (12.0-16.0) g/dl Hct 38.3 (37.0-47.0) % MCV 88.7 (80.0-98.0) fL MCH 31.9 (27.0-33.0) pg MCHC 36.0 H (31.0-35.0) g/dl RDW 11.8 (11.0-16.0) % Plt Count 221 (160-400) X10*3/uL MPV 11.4 (9.4-12.3) fL Immature Gran % (Auto) 0.4 (0.0-0.4) % Neut % (Auto) 82.9 H (45-73) % Lymph % (Auto) 11.6 L (20-40) % [place] % (Auto) 4.9 (2-11) % Eos % (Auto) 0.0 (0-4) % Baso % (Auto) 0.2 (0-2) % Lymph # (Auto) 0.9 L (1.2-4.9) X10*3/uL [place] # (Auto) 0.4 (0.1-1.2) X10*3/uL Eos # (Auto) 0.0 (0.0-0.4) X10*3/uL Baso # (Auto) 0.0 (0.0-0.2) X10*3/uL Abs Immat Gran (auto) 0.03 (0.00-0.03) X10*3/uL Absolute Neuts (auto) 6.6 (2.0-8.3) x10*3/uL Absolute Nucleated RBC 0.000 (0.0-0.012) X10*3/uL Nucleated RBC % (auto) 0.0 (0.0-0.2) /100WBC Sodium 139 (135-145) mmol/L Potassium 3.4 (3.3-5.1) mmol/L Chloride 104 (96-108) mmol/L Carbon Dioxide 23 (22-29) mmol/L Anion Gap 15 (12-20) BUN 11 D (9-16) mg/dL Creatinine 0.74 (0.5-1.4) mg/dL Estim Creat Clear Calc 90.7 Estimated GFR > 60 POC Glucose 87 (60-115) mg/dL Random Glucose 76 (60-115) mg/dL Calcium 8.8 D (8.4-10.2) mg/dL Total Bilirubin 1.5 H (0.0-1.0) mg/dL Direct Bilirubin 0.6 H (0.0-0.5) mg/dL AST 21 (5-31) U/L ALT 14 (0-31) U/L Alkaline Phosphatase 54 (39-117) U/L Total Protein 6.9 (6.5-8.0) g/dL Albumin 4.2 (3.5-5.0) g/dL Lipase 14 (8-78) U/L Critical Care Time Critical Care Time Critical Care Time: Yes Total Critical Care Time: 35 Attestation: I have personally provided critical care time exclusive of time spent on separately billable procedures. Time includes review of laboratory data, radiology results, discussion with consultants, and monitoring for potential decompensation. Interventions were performed as documented. Discharge Plan Discharge Patient Disposition: Admitted As Inpatient Prescriptions: No Action metoclopramide HCl [Reglan] 5 mg tablet 5 mg PO Q6H PRN (Reason: nausea and vomiting) Qty: 10 RF: 0 nitrofurantoin macrocrystal 100 mg capsule 100 mg PO BID Qty: 20 RF: 0 ondansetron 4 mg tablet,disintegrating 4 mg PO Q8H PRN (Reason: nausea and vomiting) Qty: 20 RF: 0
[2021-03-04] MEDS: diphenhydrAMINE HCL 50 MG/ML VIAL 25 MG IVPUSH (17:02)
[2021-03-04] MEDS: Metoclopramide HCl 10 MG/2 ML VIAL IVPUSH (17:02)
[2021-03-04] MEDS: SUMAtriptan succinate 6 MG/0.5 ML VIAL SUBCUT (17:02)
[2021-03-04 18:01] VITALS: BP 120/95; PULSE 90; RESP 18; O2SAT 99
--- NOTE | 2021-03-04 18:07 | PC.NURSE ---
had been feeling a little better but nausea increasing again.
[2021-03-04 18:35] LABS: MANUAL DIFF FLAG NO
[2021-03-04 18:37] LABS: Basophils Percent Auto 0.2 % (0-2); Hematocrit 38.3 % (37.0-47.0); Hemoglobin 13.8 g/dl (12.0-16.0); Imm Gran Abs Auto 0.03 X10*3/uL (0.00-0.03); Imm Gran Pct Auto 0.4 % (0.0-0.4); Lymphocytes Absolute Auto 0.9 X10*3/uL (1.2-4.9); Lymphocytes Percent Auto 11.6 % (20-40); Mean Corpuscular Hemoglobin 31.9 pg (27.0-33.0); Mean Corpuscular Volume 88.7 fL (80.0-98.0); Mean Platelet Volume 11.4 fL (9.4-12.3); Monocytes Absolute Auto 0.4 X10*3/uL (0.1-1.2); Monocytes Percent Auto 4.9 % (2-11); Neutrophils Absolute Auto 6.6 x10*3/uL (2.0-8.3); Neutrophils Percent Auto 82.9 % (45-73); Platelet Count 221 X10*3/uL (160-400); Red Blood Count 4.32 X10*6/uL (4.20-5.50); Red Cell Distribution Width 11.8 % (11.0-16.0)
[2021-03-04 18:51] LABS: Alanine Aminotransferase 14 U/L (0-31); Albumin Level 4.2 g/dL (3.5-5.0); Alkaline Phosphatase 54 U/L (39-117); Anion Gap 15 (12-20); Aspartate Amino Transferase 21 U/L (5-31); Bilirubin Direct 0.6 mg/dL (0.0-0.5); Bilirubin Total 1.5 mg/dL (0.0-1.0); Blood Urea Nitrogen 11 mg/dL (9-16); Calcium 8.8 mg/dL (8.4-10.2); Carbon Dioxide 23 mmol/L (22-29); Chloride 104 mmol/L (96-108); Creatinine Clr Calc Pharmacy 90.7; Estimated Glomerular Filt Rate > 60; Glucose Random 76 mg/dL (60-115); Lipase 14 U/L (8-78); Potassium 3.4 mmol/L (3.3-5.1); Sodium 139 mmol/L (135-145); Total Protein 6.9 g/dL (6.5-8.0)
[2021-03-04] MEDS: 0.9 % Sodium Chloride 1,000 ML 999 ML IVCONT (19:10)
[2021-03-04] MEDS: LORazepam 2 MG/ML VIAL 0.5 MG IVPUSH (19:10)
[2021-03-04 19:47] VITALS: BP 142/97; PULSE 82; RESP 16; TEMP 37.2; O2SAT 100
--- NOTE | 2021-03-04 22:02 | PM.IMHP ---
History of Present Illness Date of Service: 03/04/21 Chief Complaint: abd pain, n/v this is a 25-year-old female with no significant past medical history presents to the hospital with complaints of intractable nausea vomiting. Patient reports that her symptoms started about 2-3 days ago, relieved by hot shower, she has had 5-6 episodes of vomiting daily, she has also developed nonbloody diarrhea 2 to 3 times a day. She reports diffuse abdominal pain. She denies any previous similar episodes, no fever or chills, no chest pain, no shortness of breath, no headache or change in vision, no dizziness, no urinary symptoms. No lower extremity edema On arrival to the ED patient's vitals stable Labs unremarkable Patient has had multiple visits to the ED for the same reason within the last few days. Patient reports no relief with medications given by IV. Patient will be admitted for management of intractable nausea vomiting Review of Systems Review of Systems: Yes all other systems are reviewed and are negative [facility] Medical History (Updated 03/05/21 @ 03:34 by Ashley Sharp MD) Asthma Pertinent family history: no family history of CAD Surgical History (Updated 03/05/21 @ 03:33 by Ashley Sharp MD) No pertinent past surgical history Social History Alcohol intake: never Patient Tobacco Use Status: Never used Tobacco Use of substances other than those prescribed or required for medical reasons: No Substance Use Type: Marijuana Advance Directives: No Advance Directives Information Provided: No Meds Allergies Allergy/AdvReac Type Severity Reaction Status Date / Time amoxicillin [AMOXICILLIN] Allergy Unknown RASH Verified 03/04/21 16:15 Iodinated Contrast Media Allergy Unknown Verified 03/04/21 16:15 shellfish derived Allergy Unknown Verified 03/04/21 16:15 Physical Exam Vital Signs and Narrative: Vital Signs: Last Vital Signs Temp 99.0 F 03/04/21 19:47 Pulse 82 03/04/21 19:47 Resp 16 03/04/21 19:47 BP 142/97 H 03/04/21 19:47 Pulse Ox 100 03/04/21 19:47 BMI result Body Mass Index 20.1 Const: General: cooperative and no acute distress Orientation/consciousness: patient oriented x3 Eyes: General: appearance normal, both eyes and all related structures Pupils: Equal, round and reactive pupils present Resp: Effort & Inspection: normal respiratory effort Auscultation: clear to auscultation bilaterally Cardio: Rate: regular rate Rhythm: regular rhythm GI: Other: no rebound or guarding Palpation (GI): Soft to palpation Auscultation: normal bowel sounds Skin: General skin exam: no rashes or lesions noted Neuro: General: patient oriented x3 Cranial nerves: Yes Equal, round and reactive pupils present Cognition (Neuro): normal cognition Extrem: General: Yes normal to inspection and Yes no pedal edema Results Labs CBC and Chem 7: 03/04/21 18:31 03/04/21 18:31 Labs: Laboratory Results - last 24 hr 03/04/21 03/04/21 03/04/21 16:15 18:31 18:31 MCV 88.7 MCH 31.9 MCHC 36.0 H RDW 11.8 Plt Count 221 MPV 11.4 Immature Gran % (Auto) 0.4 Neut % (Auto) 82.9 H Lymph % (Auto) 11.6 L [place] % (Auto) 4.9 Eos % (Auto) 0.0 Baso % (Auto) 0.2 Lymph # (Auto) 0.9 L [place] # (Auto) 0.4 Eos # (Auto) 0.0 Baso # (Auto) 0.0 Abs Immat Gran (auto) 0.03 Absolute Neuts (auto) 6.6 Absolute Nucleated RBC 0.000 Nucleated RBC % (auto) 0.0 Anion Gap 15 Estim Creat Clear Calc 90.7 Estimated GFR > 60 POC Glucose 87 Random Glucose 76 Calcium 8.8 D Total Bilirubin 1.5 H Direct Bilirubin 0.6 H AST 21 ALT 14 Alkaline Phosphatase 54 Total Protein 6.9 Albumin 4.2 Lipase 14 Assessment and Plan (1) Cyclic vomiting syndrome: Status: Acute (2) Intractable nausea and vomiting: Status: Acute (3) Diarrhea: Status: Acute (4) Abdominal pain: Qualifiers: Abdominal location: generalized Qualified Code(s): R10.84 - Generalized abdominal pain Status: Acute 25-year-old female with past medical history of asthma who was presented to the hospital with intractable nausea vomiting. Patient reports history of marijuana use but has not had any the past 5 days. # Abdominal pain, nausea vomiting, diarrhea - intractable nausea vomiting -relief with hot showers -most likely cyclic vomiting syndrome versus gastroenteritis - patient will be admitted for treatment with antiemetics, IV fluid - no significant abnormal labs - follow BMP - advised to abstain from using marijuana # asthma - no exacerbation DVT prophylaxis: Early ambulation Quality Stroke Does the patient have a stroke diagnosis?: No VTE Prior VTE?: No VTE Risk Level:: Medical - low VTE Device Contraindication: Treatment Not Indicated VTE Drug Contraindication: Treatment Not Indicated
[2021-03-05] VITALS: RESP 16
[2021-03-05] MEDS: Acetaminophen 325 MG TABLET 650 MG PO (00:45)
[2021-03-05 00:54] LABS: Appearance Urine HAZY; Color Urine YELLOW; Glucose Urine UA NEG (NEG); Leukocyte Esterase Urine NEG (NEG); Nitrite Urine NEG (NEG); Specific Gravity - Urine 1.025 (1.005-1.025); UACC Culture Trigger NO; Urine Blood 2+ (NEG); Urine Ketones >=80 MG/DL (NEG); Urine Protein NEG (NEG-TRACE)
[2021-03-05 01:11] LABS: Amorphous Sediment Urine 2+ /LPF; Bacteria Urine 2+ /LPF; Mucus Urine 2+ /LPF; Squamous Epithelial Cell Urine 2+ /LPF
[2021-03-05 01:22] LABS: Amphetamine Screen Urine Not Detected (Not Detect); Barbiturates, Urine Not Detected (Not Detect); Benzodiazepines Screen Urine Not Detected (Not Detect); Cannabinoid Screen Urine POSITIVE (Not Detect); Cocaine Screen Urine Not Detected (Not Detect); Fentanyl, urine Not Detected (Not Detect); Opiate Screen Urine Not Detected (Not Detect); Phencyclidine Screen Urine Not Detected (Not Detect)
[2021-03-05] MEDS: Prochlorperazine Edisylate 10 MG/2 ML VIAL 5 MG IVPUSH ×2 (02:47→14:15)
--- NOTE | 2021-03-05 03:29 | PC.NURSE ---
Assumed care of pt from main ED. Pt awake and alert, ambulatory to hospital bed. Endorsing continued nausea and stomach irritation , states only mild relief from recently administered compazine. MD Sharp notified to request addition PRNs
[2021-03-05 06:30] VITALS: BP 122/78; PULSE 76; RESP 16; TEMP 37.1; O2SAT 99
[2021-03-05 07:15] LABS: COVID-19 Test Negative (Negative); IDNOW Serial# 9DD0AD1C
--- NOTE | 2021-03-05 08:05 | PHA.MEDREC ---
Pharmacy Consult ? Medication Reconciliation Pharmacy has reviewed the medication reconciliation completed by Ngozi French. Malissa Rinaldi, PharmD
--- NOTE | 2021-03-05 08:35 | P.PNIM_ITS ---
Subjective Subjective Date of Service: 03/06/21 Interval History: intractable nausea/vomiting Review of Systems still has vomiting , not tolerating po Physical Exam Verdana 4l Vital Signs: Verdana 4d Verdana 4d Vital Signs: Verdana 4d Verdana 4Bd Last Vital Signs Verdana 4d Engineer Station Mainline New 4d Engineer Station Mainline New 4d Temp 98.8 F 03/05/21 06:30 Engineer Station Mainline New 4d Pulse 76 03/05/21 06:30 Engineer Station Mainline New 4d Resp 16 03/05/21 06:30 BP 122/78 03/05/21 06:30 Pulse Ox 99 03/05/21 06:30 BMI result Body Mass Index 20.1 Objective Data Active Medications Acetaminophen (Acetaminophen 325 Mg Tablet) 650 mg PO Q6H PRN PRN Reason: Pain, Mild (Pain Scale 1-3) Last Admin: 03/05/21 00:45 Dose: 650 mg Documented by: ADAL Ondansetron HCl (Ondansetron Hcl 4 Mg/2 Ml Vial) 4 mg IVPUSH Q8H PRN PRN Reason: Nausea and Vomiting Prochlorperazine Edisylate (Prochlorperazine Edisylate 10 Mg/2 Ml Vial) 5 mg IVPUSH Q4H PRN PRN Reason: Nausea and Vomiting Last Admin: 03/05/21 02:47 Dose: 5 mg Documented by: ADAL Sodium Chloride (0.9 % Sodium Chloride Flush 3 Ml Syringe) [facility] Last Admin: 03/05/21 00:06 Dose: Not Given Documented by: ADAL Non-Admin Reason: Med Not Available Labs CBC & Chem 7: 03/05/21 09:31 03/06/21 06:05 Labs: Laboratory Results - last 24 hr 03/04/21 03/04/21 03/04/21 16:15 18:31 18:31 MCV 88.7 MCH 31.9 MCHC 36.0 H RDW 11.8 Plt Count 221 MPV 11.4 Immature Gran % (Auto) 0.4 Neut % (Auto) 82.9 H Lymph % (Auto) 11.6 L [place] % (Auto) 4.9 Eos % (Auto) 0.0 Baso % (Auto) 0.2 Lymph # (Auto) 0.9 L [place] # (Auto) 0.4 Eos # (Auto) 0.0 Baso # (Auto) 0.0 Abs Immat Gran (auto) 0.03 Absolute Neuts (auto) 6.6 Absolute Nucleated RBC 0.000 Nucleated RBC % (auto) 0.0 Anion Gap 15 Estim Creat Clear Calc 90.7 Estimated GFR > 60 POC Glucose 87 Random Glucose 76 Calcium 8.8 D Total Bilirubin 1.5 H Direct Bilirubin 0.6 H AST 21 ALT 14 Alkaline Phosphatase 54 Total Protein 6.9 Albumin 4.2 Lipase 14 Urine Color Urine Appearance Urine pH Ur Specific [place] Urine Protein Urine Glucose (UA) Urine Ketones Urine Blood Urine Nitrite Ur Leukocyte Esterase Urine RBC Urine WBC Ur Squamous Epith Cells Amorphous Sediment Urine Bacteria Urine Mucus Urine Opiates Screen Urine Fentanyl Screen Ur Barbiturates Screen Ur Phencyclidine Scrn Ur Amphetamines Screen U Benzodiazepines Scrn Urine Cocaine Screen U Marijuana (THC) Screen COVID-19 (RD) COVID-19 Pick1 03/05/21 03/05/21 03/05/21 00:48 00:48 06:51 MCV MCH MCHC RDW Plt Count MPV Immature Gran % (Auto) Neut % (Auto) Lymph % (Auto) [place] % (Auto) Eos % (Auto) Baso % (Auto) Lymph # (Auto) [place] # (Auto) Eos # (Auto) Baso # (Auto) Abs Immat Gran (auto) Absolute Neuts (auto) Absolute Nucleated RBC Nucleated RBC % (auto) Anion Gap Estim Creat Clear Calc Estimated GFR POC Glucose Random Glucose Calcium Total Bilirubin Direct Bilirubin AST ALT Alkaline Phosphatase Total Protein Albumin Lipase Urine Color YELLOW Urine Appearance HAZY Urine pH 7.0 Ur Specific [place] 1.025 Urine Protein NEG Urine Glucose (UA) NEG Urine Ketones >=80 Urine Blood 2+ H Urine Nitrite NEG Ur Leukocyte Esterase NEG Urine RBC 1-4 Urine WBC 1-4 Ur Squamous Epith Cells 2+ Amorphous Sediment 2+ Urine Bacteria 2+ Urine Mucus 2+ Urine Opiates Screen Not Detected Urine Fentanyl Screen Not Detected Ur Barbiturates Screen Not Detected Ur Phencyclidine Scrn Not Detected Ur Amphetamines Screen Not Detected U Benzodiazepines Scrn Not Detected Urine Cocaine Screen Not Detected U Marijuana (THC) Screen POSITIVE H COVID-19 (RD) Negative COVID-19 Clin Com See Note Assessment and Plan (1) Intractable nausea and vomiting: Status: Acute (2) Cyclic vomiting syndrome: Status: Acute Plan ?25-year-old female with past medical history of asthma who was presented to the hospital with intractable nausea vomiting.? Patient reports history of marijuana use but has not had any the past 5 days. # ? Abdominal pain, nausea vomiting, diarrhea -? intractable nausea vomiting -relief with hot showers -most likely cyclic vomiting syndrome versus gastroenteritis -? patient will be admitted for treatment with antiemetics, IV fluid -? no significant abnormal labs -? follow BMP ?-? advised to abstain from using? marijuana #? asthma -? no exacerbation ?DVT prophylaxis:? Early ambulation Quality Stroke Does the patient have a stroke diagnosis?: No VTE Prior VTE?: No VTE Risk Level:: Medical - low VTE Device Contraindication: Treatment Not Indicated VTE Drug Contraindication: Treatment Not Indicated
[2021-03-05 09:36] LABS: MANUAL DIFF FLAG NO
[2021-03-05 09:38] LABS: Basophils Percent Auto 0.3 % (0-2); Hematocrit 36.6 % (37.0-47.0); Hemoglobin 12.9 g/dl (12.0-16.0); Imm Gran Abs Auto 0.02 X10*3/uL (0.00-0.03); Imm Gran Pct Auto 0.2 % (0.0-0.4); Lymphocytes Absolute Auto 2.3 X10*3/uL (1.2-4.9); Lymphocytes Percent Auto 27.1 % (20-40); Mean Corpuscular HGB Conc 35.2 g/dl (31.0-35.0); Mean Corpuscular Hemoglobin 31.5 pg (27.0-33.0); Mean Corpuscular Volume 89.3 fL (80.0-98.0); Mean Platelet Volume 11.3 fL (9.4-12.3); Monocytes Absolute Auto 0.7 X10*3/uL (0.1-1.2); Monocytes Percent Auto 8.2 % (2-11); Neutrophils Absolute Auto 5.5 x10*3/uL (2.0-8.3); Neutrophils Percent Auto 64.2 % (45-73); Platelet Count 221 X10*3/uL (160-400); Red Cell Distribution Width 11.9 % (11.0-16.0); White Blood Count 8.6 X10*3/uL (4.8-10.8)
[2021-03-05 09:53] LABS: Anion Gap 16 (12-20); Blood Urea Nitrogen 12 mg/dL (9-16); Calcium 8.7 mg/dL (8.4-10.2); Carbon Dioxide 20 mmol/L (22-29); Chloride 102 mmol/L (96-108); Creatinine Clr Calc Pharmacy 94.5; Estimated Glomerular Filt Rate > 60; Glucose Random 67 mg/dL (60-115); Potassium 3.3 mmol/L (3.3-5.1); Sodium 135 mmol/L (135-145)
[2021-03-05] MEDS: 0.9 % Sodium Chloride Flush 3 ML SYRINGE IVFLUSH (11:23)
[2021-03-05 11:25] VITALS: BP 118/71; PULSE 80; RESP 18; TEMP 37.1; O2SAT 97
--- NOTE | 2021-03-05 12:00 | PC.NURSE ---
nausea after apple juice, zofran given
--- NOTE | 2021-03-05 14:11 | MHC.CM.PN ---
Met with patient in regards to discharge planning. Patient lives with her mother, ambulates independently and had no services prior to coming to the hospital. No services anticipated to be needed at d/c because patient is not homebound. Financial Counseling was able to get patient signed up with [facility]. Patient has no PCP. sales service assistant has been asked to make a new PCP appointment for patient. Patient received 3 Moderna vaccines. Patient's mother will transport her home when medically stable. Obs notice explained and signed. Continue to monitor for d/c needs.
[2021-03-05 16:00] VITALS: BP 137/81; PULSE 82; RESP 16; TEMP 37.3; O2SAT 99
[2021-03-05] MEDS: Pantoprazole Sodium 40 MG/10 ML VIAL IVPUSH (16:36)
[2021-03-05] MEDS: traMADoL HCL 50 MG TABLET 25 MG PO (17:45)
--- NOTE | 2021-03-05 18:31 | PC.NURSE ---
PT GIVEN PO TRAMADOL PRN FOR STOMACH PAIN, CURRENTLY TAKING A SHOWER FOR COMFORT.
[2021-03-05] MEDS: ondansetron HCL 4 MG/2 ML VIAL IVPUSH (19:19)
[2021-03-05 20:00] VITALS: BP 121/93; PULSE 74; RESP 16; TEMP 37
[2021-03-06] VITALS: BP 120/77; PULSE 72; RESP 16; TEMP 36.6; O2SAT 98
[2021-03-06] MEDS: traMADoL HCL 50 MG TABLET 25 MG PO ×2 (00:26→14:13)
[2021-03-06] MEDS: 0.9 % Sodium Chloride Flush 3 ML SYRINGE IVFLUSH ×4 (00:27→22:47)
[2021-03-06 04:00] VITALS: BP 114/63; PULSE 90; RESP 16; TEMP 36.4; O2SAT 99
[2021-03-06] MEDS: Pantoprazole Sodium 40 MG/10 ML VIAL IVPUSH ×2 (05:20→16:27)
[2021-03-06 06:59] LABS: Anion Gap 16 (12-20); Blood Urea Nitrogen 14 mg/dL (9-16); Calcium 9.2 mg/dL (8.4-10.2); Carbon Dioxide 25 mmol/L (22-29); Chloride 98 mmol/L (96-108); Creatinine Clr Calc Pharmacy 83.9; Estimated Glomerular Filt Rate > 60; Glucose Random 64 mg/dL (60-115); Potassium 3.6 mmol/L (3.3-5.1); Sodium 135 mmol/L (135-145)
[2021-03-06 08:00] VITALS: BP 133/78; PULSE 77; RESP 17; TEMP 36.8; O2SAT 98
--- NOTE | 2021-03-06 08:54 | P.DS_ITS ---
DS: Providers Provider Date of Service: 03/06/21 Date of admission: 03/04/21 22:00 Primary care physician: None Physician DS: Diagnosis Discharge Diagnosis (1) Intractable nausea and vomiting: Status: Acute (2) Cyclic vomiting syndrome: Status: Acute DS: Summary Hospital Course Hospital Course: 25-year-old female with past medical history of asthma who was presented to the hospital with intractable nausea vomiting.? Patient reports history of marijuana use but has not had any the past 5 days. Hospital course: patient came with intractable nausea vomiting- possible related to her marijuana use. Patient was given symptomatic treatment with IV fluid, PPIs, Reglan, Zofran. Seems to be improving -tolerating diet. Patient was strongly advised to cut down Marijuana use if possible. she understand and in agreement with the above plan. Above management discussed with the patient in detail length she understand and in agreement with the above plan, time spent 50 minutes and 50% time spent on counseling. Significant findings: As above. Procedures performed: None. Treatment and response: As above. Complications: None. addm: addm: Date of discharge end service:03/07/21. Patient had intractable nausea vomiting that is why needed more antiemetics IV as well as and p.o. and hydration-so needed to stay yesterday, going home since tolerated diet. Strongly advised to avoid marijuana Time Spent with Patient Time attestation: Total time spent providing and/or coordinating discharge services: Discharge coordination time: Greater than 30 minutes Quality: Stroke Does the patient have a stroke diagnosis?: No Physical Exam Verdana 4l Vital Signs: Verdana 4d Verdana 4d Vital Signs: Verdana 4d Verdana 4Bd Last Vital Signs Verdana 4d Utility Operator New 4d Utility Operator New 4d Temp 98.2 F 03/06/21 08:00 Utility Operator New 4d Pulse 77 03/06/21 08:00 Utility Operator New 4d Resp 17 03/06/21 08:00 BP 133/78 03/06/21 08:00 Pulse Ox 98 03/06/21 08:00 BMI result Body Mass Index 20.1 Appearance: Alert.? Oriented X3.? not in distress.? Eyes: Pupils equal, round and reactive to light.? Sclera nonicteric.? ENT: Pharynx normal.? Moist mucous membranes. cvs: rrr, [id number] , no murmur res: clear to auscultation ,no rhonchii or wheezing abd: no rebound or guarding ,nt, bs present. ext pulses present , no cyanosis ,Gait well balanced well coordinated. neuro: axo3 , nonfocal. DS: Data Data Completed and Pending Labs on day of discharge: Laboratory Results - last 24 hr 03/04/21 03/05/21 03/05/21 16:15 09:31 09:31 WBC 8.6 RBC 4.10 L Hgb 12.9 Hct 36.6 L MCV 89.3 MCH 31.5 MCHC 35.2 H RDW 11.9 Plt Count 221 MPV 11.3 Immature Gran % (Auto) 0.2 Neut % (Auto) 64.2 Lymph % (Auto) 27.1 [place] % (Auto) 8.2 Eos % (Auto) 0.0 Baso % (Auto) 0.3 Lymph # (Auto) 2.3 [place] # (Auto) 0.7 Eos # (Auto) 0.0 Baso # (Auto) 0.0 Abs Immat Gran (auto) 0.02 Absolute Neuts (auto) 5.5 Absolute Nucleated RBC 0.000 Nucleated RBC % (auto) 0.0 Sodium 135 Potassium 3.3 Chloride 102 Carbon Dioxide 20 L Anion Gap 16 BUN 12 Creatinine 0.71 Estim Creat Clear Calc 94.5 Estimated GFR > 60 POC Glucose 87 Random Glucose 67 Calcium 8.7 03/06/21 06:05 WBC RBC Hgb Hct MCV MCH MCHC RDW Plt Count MPV Immature Gran % (Auto) Neut % (Auto) Lymph % (Auto) [place] % (Auto) Eos % (Auto) Baso % (Auto) Lymph # (Auto) [place] # (Auto) Eos # (Auto) Baso # (Auto) Abs Immat Gran (auto) Absolute Neuts (auto) Absolute Nucleated RBC Nucleated RBC % (auto) Sodium 135 Potassium 3.6 Chloride 98 Carbon Dioxide 25 Anion Gap 16 BUN 14 Creatinine 0.80 Estim Creat Clear Calc 83.9 Estimated GFR > 60 POC Glucose Random Glucose 64 Calcium 9.2 Additional Comments Additional comments: CT/CT abdomen pelvis wo con IMPRESSION: IUD in the uterus. The position of the IUD may be slightly high. Otherwise unremarkable exam.? ? Fleischner guidelines were followed. Discharge Plan Discharge Patient Disposition: Home, Self-Care Discharge Diagnosis: cyclic vomiting sec to marijuana use. Referrals: Physician,None [Primary Care Provider] - 1 Week Discharge Medications: New omeprazole 20 mg capsule,delayed release(DR/EC) 20 mg PO DAILY Qty: 30 0RF tramadol 50 mg tablet 25 mg PO DAILY Qty: 5 0RF Continued metoclopramide HCl [Reglan] 5 mg tablet 5 mg PO Q6H PRN (Reason: nausea and vomiting) Qty: 10 0RF nitrofurantoin macrocrystal 100 mg capsule 100 mg PO BID Qty: 20 0RF Rx Instructions: must administer with a meal/food ondansetron 4 mg tablet,disintegrating 4 mg PO Q8H PRN (Reason: nausea and vomiting) Qty: 20 0RF Discharge Orders: Discharge Order (Routine); Ordered 03/07/21 Ordered By: Rosa Maria Mon Diet: advance to usual diet Activity on Discharge: As tolerated Stand Alone Forms: Patient Portal Discharge page Care Plan Goals: patient came with intractable nausea vomiting- possible related to her marijuana use. Patient was given symptomatic treatment with IV fluid, PPIs, Reglan, Zofran. Seems to be improving -tolerating diet. Patient was strongly advised to cut down Marijuana use if possible. she understand and in agreement with the above plan. Health Concerns: As above. Plan of Treatment: As above. Assessment: As above. Discharge Date/Time: 03/07/21 14:46
[2021-03-06 11:42] VITALS: BP 117/80; PULSE 90; RESP 17; TEMP 36.8; O2SAT 100
--- NOTE | 2021-03-06 12:05 | MHC.CM.PN ---
PATIENT IS DC TO HOME - SELF CARE. RN AWARE OF PLAN.
[2021-03-06 15:34] VITALS: BP 132/98; PULSE 92; RESP 17; TEMP 36.8; O2SAT 100
--- NOTE | 2021-03-06 15:36 | P.PNIM_ITS ---
Subjective Subjective Date of Service: 03/07/21 Interval History: cyclic vomiting due to marijuana use Review of Systems still has abd pain and nausea Physical Exam Verdana 4l Vital Signs: Verdana 4d Verdana 4d Vital Signs: Verdana 4d Verdana 4Bd Last Vital Signs Verdana 4d Emergency Doctor New 4d Emergency Doctor New 4d Temp 98.2 F 03/06/21 11:42 Emergency Doctor New 4d Pulse 90 03/06/21 11:42 Emergency Doctor New 4d Resp 17 03/06/21 11:42 BP 117/80 03/06/21 11:42 Pulse Ox 100 03/06/21 11:42 BMI result Body Mass Index 20.1 Appearance: Alert.? Oriented X3.? not in distress.? Eyes: Pupils equal, round and reactive to light.? Sclera nonicteric.? ENT: Pharynx normal.? Moist mucous membranes. cvs: rrr, [id number] , no murmur res: clear to auscultation ,no rhonchii or wheezing abd: no rebound or guarding , moderate abd pain, bs present. ext pulses present , no cyanosis ,Gait well balanced well coordinated. neuro: axo3 , nonfocal. Objective Data Active Medications Acetaminophen (Acetaminophen 325 Mg Tablet) 650 mg PO Q6H PRN PRN Reason: Pain, Mild (Pain Scale 1-3) Last Admin: 03/05/21 00:45 Dose: 650 mg Documented by: ADAL Ondansetron HCl (Ondansetron Hcl 4 Mg/2 Ml Vial) 4 mg IVPUSH Q8H PRN PRN Reason: Nausea and Vomiting Last Admin: 03/05/21 19:19 Dose: 4 mg Documented by: CECIL Pantoprazole Sodium (Pantoprazole Sodium 40 Mg/10 Ml Vial) 40 mg IVPUSH BID@0630,1630 FAR[facility] Last Admin: 03/06/21 05:20 Dose: 40 mg Documented by: ALESSANDRO Prochlorperazine Edisylate (Prochlorperazine Edisylate 10 Mg/2 Ml Vial) 5 mg IVPUSH Q4H PRN PRN Reason: Nausea and Vomiting Last Admin: 03/05/21 14:15 Dose: 5 mg Documented by: MIGNON Sodium Chloride (0.9 % Sodium Chloride Flush 3 Ml Syringe) 3 ml IVFLUSH QSHIFT [facility] Last Admin: 03/06/21 09:21 Dose: 3 ml Documented by: ANGELA Tramadol HCl (Tramadol Hcl 50 Mg Tablet) 25 mg PO Q6H PRN PRN Reason: abd pain Last Admin: 03/06/21 14:13 Dose: 25 mg Documented by: ANGELA Labs CBC & Chem 7: 03/05/21 09:31 03/06/21 06:05 Labs: Laboratory Results - last 24 hr 03/04/21 03/06/21 16:15 06:05 Anion Gap 16 Estim Creat Clear Calc 83.9 Estimated GFR > 60 POC Glucose 87 Random Glucose 64 Calcium 9.2 Assessment and Plan (1) Intractable nausea and vomiting: Status: Acute (2) Cyclic vomiting syndrome: Status: Acute Plan 25-year-old female with past medical history of asthma who was presented to the hospital with intractable nausea vomiting.? Patient reports history of marijuana use but has not had any the past 5 days. # ? Abdominal pain, nausea vomiting, diarrhea -? intractable nausea vomiting -relief with hot showers -most likely cyclic vomiting syndrome versus gastroenteritis patient continue to have significant nausea/adb pain after eating -could not tolerate po intake will continue treatment with antiemetics, ppi , IV fluid ?-? advised to abstain from using? marijuana #? asthma -? no exacerbation ?DVT prophylaxis:? Early ambulation Quality Stroke Does the patient have a stroke diagnosis?: No VTE Prior VTE?: No VTE Risk Level:: Medical - low VTE Device Contraindication: Treatment Not Indicated VTE Drug Contraindication: Treatment Not Indicated
[2021-03-06] MEDS: ondansetron HCL 4 MG/2 ML VIAL IVPUSH ×3 (15:38→22:31)
[2021-03-06] MEDS: Acetaminophen 325 MG TABLET 650 MG PO (16:32)
[2021-03-06] MEDS: HYDROmorphone HCl 1 MG/ML SYRINGE 0.5 MG IVPUSH (17:36)
[2021-03-06 19:34] VITALS: BP 127/80; PULSE 73; RESP 17; TEMP 37.2; O2SAT 95
[2021-03-07] VITALS: BP 118/76; PULSE 64; RESP 17; TEMP 36.5; O2SAT 97
[2021-03-07 04:00] VITALS: BP 118/76; PULSE 64; RESP 17; TEMP 36.5; O2SAT 97
[2021-03-07] MEDS: Pantoprazole Sodium 40 MG/10 ML VIAL IVPUSH (05:09)
[2021-03-07] MEDS: ondansetron HCL 4 MG/2 ML VIAL IVPUSH ×2 (05:09→10:25)
[2021-03-07 07:27] VITALS: BP 127/75; PULSE 97; RESP 18; TEMP 36.5; O2SAT 98
--- NOTE | 2021-03-07 07:44 | P.PNIM_ITS ---
Subjective Subjective Date of Service: 03/07/21 Interval History: cyclic vomitin probable related to chriss Physical Exam Verdana 4l Vital Signs: Verdana 4d Verdana 4d Vital Signs: Verdana 4d Verdana 4Bd Last Vital Signs Verdana 4d Mold Stacker New 4d Mold Stacker New 4d Temp 97.7 F 03/07/21 07:27 Mold Stacker New 4d Pulse 97 03/07/21 07:27 Mold Stacker New 4d Resp 18 03/07/21 07:27 BP 127/75 03/07/21 07:27 Pulse Ox 98 03/07/21 07:27 BMI result Body Mass Index 20.1 Objective Data Active Medications Acetaminophen (Acetaminophen 325 Mg Tablet) 650 mg PO Q6H PRN PRN Reason: Pain, Mild (Pain Scale 1-3) Last Admin: 03/06/21 16:32 Dose: 650 mg Documented by: REMIGIO Hydromorphone HCl (Hydromorphone Hcl 1 Mg/Ml Syringe) 0.5 mg IVPUSH Q6H PRN; Protocol PRN Reason: Pain, Moderate (Pain Scale 4-6 Ondansetron HCl (Ondansetron Hcl 4 Mg/2 Ml Vial) 4 mg IVPUSH Q6H [facility] Last Admin: 03/07/21 05:09 Dose: 4 mg Documented by: JUDY Pantoprazole Sodium (Pantoprazole Sodium 40 Mg/10 Ml Vial) 40 mg IVPUSH BID@0630,1630 [facility] Last Admin: 03/07/21 05:09 Dose: 40 mg Documented by: JUDY Prochlorperazine Edisylate (Prochlorperazine Edisylate 10 Mg/2 Ml Vial) 5 mg IVPUSH Q4H PRN PRN Reason: Nausea and Vomiting Last Admin: 03/05/21 14:15 Dose: 5 mg Documented by: MIGNON Sodium Chloride (0.9 % Sodium Chloride Flush 3 Ml Syringe) [facility] Last Admin: 03/06/21 22:47 Dose: 3 ml Documented by: JUDY Tramadol HCl (Tramadol Hcl 50 Mg Tablet) 25 mg PO Q6H PRN PRN Reason: abd pain Last Admin: 03/06/21 14:13 Dose: 25 mg Documented by: [email or web address] Labs CBC & Chem 7: 03/05/21 09:31 03/06/21 06:05 Quality Stroke Does the patient have a stroke diagnosis?: No VTE Prior VTE?: No VTE Risk Level:: Medical - low VTE Device Contraindication: Treatment Not Indicated VTE Drug Contraindication: Treatment Not Indicated
[2021-03-07] MEDS: 0.9 % Sodium Chloride Flush 3 ML SYRINGE IVFLUSH (10:25)
[2021-03-07 11:37] VITALS: BP 142/96; PULSE 94; TEMP 36.8; O2SAT 100
== END 2021-03-07 14:46 | disposition home or self-care (01) ==
LOC: HO.ED 21:21 → HO.EDOVER 22:06 → HO.S3 03-05 22:39
PROVIDERS: Nurse Practitioner Family; Admitting Provider Internal Medicine; Emergency Provider Emergency Medicine; Visit Provider Internal Medicine
DX: R11.15 Cyclical vomiting syndrome unrelated to migraine (principal); R11.2 Nausea with vomiting, unspecified; R10.84 Generalized abdominal pain; R19.7 Diarrhea, unspecified; J45.909 Unspecified asthma, uncomplicated; F12.20 Cannabis dependence, uncomplicated; Z71.51 Drug abuse counseling and surveillance of drug abuser; Z20.822 Contact with and (suspected) exposure to COVID-19; Z97.5 Presence of (intrauterine) contraceptive device; Z88.1 Allergy status to other antibiotic agents; Z91.013 Allergy to seafood; Z91.041 Radiographic dye allergy status; Z79.899 Other long term (current) drug therapy
CPT/HCPCS: 36415; 80048; 80076; 80307; 81001; 81003; 82947; 83690; 85025; 87635; 96361; 96372; 96374; 96375; 96376; 99218; 99284; 99291; J1170; J1200; J2060; J2405; J2765; J3030

== ENCOUNTER 2021-04-09 09:44 | Outpatient (REF) | payer OTHER, SELFPAY ==
[2021-04-09 10:06] LABS: MANUAL DIFF FLAG NO
[2021-04-09 10:30] LABS: Basophils Absolute Auto 0.1 X10*3/uL (0.0-0.2); Basophils Percent Auto 0.9 % (0-2); Eosinophils Absolute Auto 0.1 X10*3/uL (0.0-0.4); Hematocrit 42.3 % (37.0-47.0); Imm Gran Abs Auto 0.02 X10*3/uL (0.00-0.03); Imm Gran Pct Auto 0.3 % (0.0-0.4); Lymphocytes Absolute Auto 2.3 X10*3/uL (1.2-4.9); Lymphocytes Percent Auto 38.8 % (20-40); Mean Corpuscular HGB Conc 33.1 g/dl (31.0-35.0); Mean Corpuscular Hemoglobin 30.8 pg (27.0-33.0); Mean Platelet Volume 11.7 fL (9.4-12.3); Monocytes Absolute Auto 0.5 X10*3/uL (0.1-1.2); Monocytes Percent Auto 8.3 % (2-11); Neutrophils Absolute Auto 2.9 x10*3/uL (2.0-8.3); Neutrophils Percent Auto 50.7 % (45-73); Platelet Count 242 X10*3/uL (160-400); Red Blood Count 4.55 X10*6/uL (4.20-5.50); Red Cell Distribution Width 12.6 % (11.0-16.0); White Blood Count 5.8 X10*3/uL (4.8-10.8)
[2021-04-09 11:39] LABS: TSH reflex Free T4 0.73 uIU/mL (0.32-4.0)
[2021-04-09 11:40] LABS: Alanine Aminotransferase 12 U/L (0-31); Albumin Level 4.3 g/dL (3.5-5.0); Alkaline Phosphatase 64 U/L (39-117); Anion Gap 13 (12-20); Aspartate Amino Transferase 12 U/L (5-31); Blood Urea Nitrogen 15 mg/dL (9-16); Calcium 9.9 mg/dL (8.4-10.2); Carbon Dioxide 27 mmol/L (22-29); Chloride 104 mmol/L (96-108); Cholesterol 162 mg/dL; Estimated Glomerular Filt Rate > 60; Glucose Fasting 77 mg/dL (60-99); HDL Cholesterol 51 mg/dL; LDL Cholesterol Calculated 102 mg/dl; Potassium 4.8 mmol/L (3.3-5.1); Sodium 139 mmol/L (135-145); Total Protein 6.9 g/dL (6.5-8.0); Triglycerides 48 mg/dL
== END 2021-04-09 09:45 | disposition home or self-care (01) ==
LOC: HO.LAB 09:44
PROVIDERS: PCP Nurse Practitioner Acute Care; Visit Provider Nurse Practitioner Acute Care
DX: Z00.00 Encounter for general adult medical examination without abnormal findings (principal)
CPT/HCPCS: 36415; 80053; 80061; 84443; 85025

== ENCOUNTER 2021-05-23 21:40 | Emergency (ER) | payer OTHER, SELFPAY ==
[2021-05-23 22:07] VITALS: BP 142/94; PULSE 106; RESP 14; TEMP 36.8; O2SAT 99; BMI 18.4
[2021-05-23 22:16] LABS: MANUAL DIFF FLAG NO
[2021-05-23 22:20] LABS: Basophils Absolute Auto 0.1 X10*3/uL (0.0-0.2); Basophils Percent Auto 0.4 % (0-2); Hematocrit 38.1 % (37.0-47.0); Hemoglobin 13.3 g/dl (12.0-16.0); Imm Gran Abs Auto 0.06 X10*3/uL (0.00-0.03); Imm Gran Pct Auto 0.4 % (0.0-0.4); Lymphocytes Absolute Auto 1.7 X10*3/uL (1.2-4.9); Lymphocytes Percent Auto 12.2 % (20-40); Mean Corpuscular HGB Conc 34.9 g/dl (31.0-35.0); Mean Corpuscular Hemoglobin 31.8 pg (27.0-33.0); Mean Corpuscular Volume 91.1 fL (80.0-98.0); Mean Platelet Volume 11.6 fL (9.4-12.3); Monocytes Absolute Auto 0.4 X10*3/uL (0.1-1.2); Monocytes Percent Auto 3.1 % (2-11); Neutrophils Absolute Auto 11.8 x10*3/uL (2.0-8.3); Neutrophils Percent Auto 83.9 % (45-73); Platelet Count 266 X10*3/uL (160-400); Red Blood Count 4.18 X10*6/uL (4.20-5.50); Red Cell Distribution Width 12.3 % (11.0-16.0); White Blood Count 14.1 X10*3/uL (4.8-10.8)
[2021-05-23 22:44] LABS: Alanine Aminotransferase 9 U/L (0-31); Albumin Level 4.3 g/dL (3.5-5.0); Alkaline Phosphatase 60 U/L (39-117); Anion Gap 15 (12-20); Aspartate Amino Transferase 15 U/L (5-31); Bilirubin Total 0.9 mg/dL (0.0-1.0); Blood Urea Nitrogen 15 mg/dL (9-16); Calcium 9.9 mg/dL (8.4-10.2); Carbon Dioxide 23 mmol/L (22-29); Chloride 103 mmol/L (96-108); Creatinine Clr Calc Pharmacy 78.3; Estimated Glomerular Filt Rate > 60; Glucose Random 144 mg/dL (60-115); Lipase 13 U/L (8-78); Potassium 4.4 mmol/L (3.3-5.1); Sodium 137 mmol/L (135-145); Total Protein 6.9 g/dL (6.5-8.0)
[2021-05-24 01:33] VITALS: BP 103/55; PULSE 57; RESP 18; TEMP 36.8; O2SAT 99
[2021-05-24] MEDS: 0.9 % Sodium Chloride 2,000 ML 999 ML IV (02:53)
--- NOTE | 2021-05-24 02:53 | ED_ITS ---
HPI - Nausea/Vomiting/Diarrhea General Chief complaint: Nausea/Vomiting/Diarrhea Stated complaint: Vomiting Time Seen by Provider: 05/24/21 02:44 Source: patient and family ( mother) Mode of arrival: ambulatory History of Present Illness HPI Narrative: 26-year-old female without significant past medical history other than cyclical vomiting but patient states she began having nausea, vomiting, diarrhea after she was eating fish today for good Wednesday but then also states that she did smoke marijuana but otherwise denies any fever, chills, urinary pain /burning / frequency. Related Data Previous Rx's Medication Instructions Recorded hydroxyzine HCl 25 mg tablet 25 mg PO TID PRN #30 tab 04/09/21 dextroamphetamine-amphetamine 10 10 mg PO DAILY #30 tab 05/07/21 mg tablet (Adderall) ondansetron 4 mg disintegrating 4 mg PO Q8H PRN #10 tab 05/24/21 tablet Allergies Allergy/AdvReac Type Severity Reaction Status Date / Time amoxicillin [AMOXICILLIN] Allergy Unknown RASH Verified 05/06/21 14:15 Iodinated Contrast Media Allergy Unknown Verified 05/06/21 14:15 shellfish derived Allergy Unknown Verified 05/06/21 14:15 Review of Systems Review of Systems: Pertinent positives and negatives as stated in HPI 10 point review of systems is otherwise negative. [facility] Past Medical History Source: nursing notes reviewed Medical History Abdominal pain Asthma Cyclic vomiting syndrome Intractable nausea and vomiting Surgical History No pertinent past surgical history Family History Family History Mother High blood pressure Father No problems noted. Other Substance abuse Social History Social History Housing: House Alcohol intake: never Patient Tobacco Use Status: Never used Tobacco Second Hand Smoke Exposure: No Substance Use Type: Marijuana Advance Directives: No service: No Current occupational status: unemployed Physical Exam Vital Signs: Vital Signs: Last Vital Signs Temp 98.4 F 05/24/21 06:58 Pulse 116 H 05/24/21 06:58 Resp 12 05/24/21 06:58 BP 129/96 H 05/24/21 06:58 Pulse Ox 100 05/24/21 06:58 BMI result Body Mass Index 18.4 VITAL SIGNS: Reviewed. GENERAL: Well developed, well nourished, in no acute distress. HEAD: Normocephalic/atraumatic EYES: PERRLA, EOMI EARS: Ext canals without abnormality OROPHARYNX: no oral lesions noted, posterior pharynx clear LUNGS: Normal breath sounds. No adventitious sounds or accessory muscle use. SpO2<99> CARDIOVASCULAR: Regular rate and rhythm without noted murmurs ABDOMEN: Soft, Epigastric pain, non-distended with bowel sounds. SKIN: Inspection of the skin reveals no rashes NEUROLOGIC: Alert and oriented x 4. Strength and sensation to light touch were grossly intact x 4. Course Course Course Narrative: 26-year-old female with history and clinical presentation suggestive of possible food contamination versus cyclical vomiting from marijuana use. Patient in the process of receiving IV fluids as well as antiemetics. Will obtain urinalysis as well as urine test. Review of all investigations negative for acute findings. Patient received fluid resuscitation as well as multiple antiemetics with eventual her nausea and vomiting and was discharged home in stable condition. MDM - Nausea/Vomiting/Diarrhea Lab Data Result diagrams: 05/23/21 22:14 05/23/21 22:14 Labs: Lab Results 05/23/21 05/23/21 05/24/21 Range/Units 22:14 22:14 04:35 WBC 14.1 H (4.8-10.8) X10*3/uL RBC 4.18 L (4.20-5.50) X10*6/uL Hgb 13.3 (12.0-16.0) g/dl Hct 38.1 (37.0-47.0) % MCV 91.1 (80.0-98.0) fL MCH 31.8 (27.0-33.0) pg MCHC 34.9 (31.0-35.0) g/dl RDW 12.3 (11.0-16.0) % Plt Count 266 (160-400) X10*3/uL MPV 11.6 (9.4-12.3) fL Immature Gran % (Auto) 0.4 (0.0-0.4) % Neut % (Auto) 83.9 H (45-73) % Lymph % (Auto) 12.2 L (20-40) % [place] % (Auto) 3.1 (2-11) % Eos % (Auto) 0.0 (0-4) % Baso % (Auto) 0.4 (0-2) % Lymph # (Auto) 1.7 (1.2-4.9) X10*3/uL [place] # (Auto) 0.4 (0.1-1.2) X10*3/uL Eos # (Auto) 0.0 (0.0-0.4) X10*3/uL Baso # (Auto) 0.1 (0.0-0.2) X10*3/uL Abs Immat Gran (auto) 0.06 H (0.00-0.03) X10*3/uL Absolute Neuts (auto) 11.8 H (2.0-8.3) x10*3/uL Absolute Nucleated RBC 0.000 (0.0-0.012) X10*3/uL Nucleated RBC % (auto) 0.0 (0.0-0.2) /100WBC Sodium 137 (135-145) mmol/L Potassium 4.4 (3.3-5.1) mmol/L Chloride 103 (96-108) mmol/L Carbon Dioxide 23 (22-29) mmol/L Anion Gap 15 (12-20) BUN 15 (9-16) mg/dL Creatinine 0.78 (0.5-1.4) mg/dL Estim Creat Clear Calc 78.3 Estimated GFR > 60 Random Glucose 144 H (60-115) mg/dL Calcium 9.9 (8.4-10.2) mg/dL Total Bilirubin 0.9 (0.0-1.0) mg/dL AST 15 (5-31) U/L ALT 9 (0-31) U/L Alkaline Phosphatase 60 (39-117) U/L Total Protein 6.9 (6.5-8.0) g/dL Albumin 4.3 (3.5-5.0) g/dL Lipase 13 (8-78) U/L Urine Color YELLOW Urine Appearance CLEAR Urine pH 8.5 H (5.0-8.0) Ur Specific [place] 1.020 (1.005-1.025) Urine Protein NEG (NEG-TRACE) MG/DL Urine Glucose (UA) 100 H (NEG) MG/DL Urine Ketones >=80 (NEG) MG/DL Urine Blood NEG (NEG) Urine Nitrite NEG (NEG) Ur Leukocyte Esterase NEG (NEG) Urine Test (NEGATIVE) 05/24/21 Range/Units 04:35 WBC (4.8-10.8) X10*3/uL RBC (4.20-5.50) X10*6/uL Hgb (12.0-16.0) g/dl Hct (37.0-47.0) % MCV (80.0-98.0) fL MCH (27.0-33.0) pg MCHC (31.0-35.0) g/dl RDW (11.0-16.0) % Plt Count (160-400) X10*3/uL MPV (9.4-12.3) fL Immature Gran % (Auto) (0.0-0.4) % Neut % (Auto) (45-73) % Lymph % (Auto) (20-40) % [place] % (Auto) (2-11) % Eos % (Auto) (0-4) % Baso % (Auto) (0-2) % Lymph # (Auto) (1.2-4.9) X10*3/uL [place] # (Auto) (0.1-1.2) X10*3/uL Eos # (Auto) (0.0-0.4) X10*3/uL Baso # (Auto) (0.0-0.2) X10*3/uL Abs Immat Gran (auto) (0.00-0.03) X10*3/uL Absolute Neuts (auto) (2.0-8.3) x10*3/uL Absolute Nucleated RBC (0.0-0.012) X10*3/uL Nucleated RBC % (auto) (0.0-0.2) /100WBC Sodium (135-145) mmol/L Potassium (3.3-5.1) mmol/L Chloride (96-108) mmol/L Carbon Dioxide (22-29) mmol/L Anion Gap (12-20) BUN (9-16) mg/dL Creatinine (0.5-1.4) mg/dL Estim Creat Clear Calc Estimated GFR Random Glucose (60-115) mg/dL Calcium (8.4-10.2) mg/dL Total Bilirubin (0.0-1.0) mg/dL AST (5-31) U/L ALT (0-31) U/L Alkaline Phosphatase (39-117) U/L Total Protein (6.5-8.0) g/dL Albumin (3.5-5.0) g/dL Lipase (8-78) U/L Urine Color Urine Appearance Urine pH (5.0-8.0) Ur Specific [place] (1.005-1.025) Urine Protein (NEG-TRACE) MG/DL Urine Glucose (UA) (NEG) MG/DL Urine Ketones (NEG) MG/DL Urine Blood (NEG) Urine Nitrite (NEG) Ur Leukocyte Esterase (NEG) Urine Test NEGATIVE (NEGATIVE) Discharge Plan Discharge Clinical Impression: Cyclical vomiting, Dehydration Patient Disposition: Home, Self-Care Instructions: Dehydration (ED), Cyclic Vomiting Syndrome (ED) Additional Instructions: 1. Stay well hydrated especially with water. 2. Try to limit or avoid all use of marijuana. 3. You have a prescription for nausea control. Return to the ER for worsening symptoms. Prescriptions: New ondansetron 4 mg tablet,disintegrating 4 mg PO Q8H PRN (Reason: nausea and vomiting) Qty: 10 0RF No Action dextroamphetamine-amphetamine [Adderall] 10 mg tablet 10 mg PO DAILY Qty: 30 0RF hydroxyzine HCl 25 mg tablet 25 mg PO TID PRN (Reason: itching) Qty: 30 0RF
[2021-05-24] MEDS: diphenhydrAMINE HCL 50 MG/ML VIAL 25 MG IVPUSH (02:54)
[2021-05-24] MEDS: Metoclopramide HCl 10 MG/2 ML VIAL IVPUSH (02:54)
[2021-05-24] MEDS: Famotidine/PF 20 MG/2 ML VIAL IVPUSH (04:32)
[2021-05-24] MEDS: Prochlorperazine Edisylate 10 MG/2 ML VIAL IVPUSH (04:32)
[2021-05-24 04:43] LABS: Appearance Urine CLEAR; Color Urine YELLOW; Glucose Urine UA 100 MG/DL (NEG); Leukocyte Esterase Urine NEG (NEG); Nitrite Urine NEG (NEG); PH 8.5 (5.0-8.0); Urine Blood NEG (NEG); Urine Ketones >=80 MG/DL (NEG); Urine Protein NEG (NEG-TRACE)
[2021-05-24 04:45] LABS: UPreg QC Valid YES; Urine Pregnancy NEGATIVE (NEGATIVE)
[2021-05-24 05:45] VITALS: BP 108/79; PULSE 78; RESP 14; TEMP 36.6; O2SAT 100
[2021-05-24 06:58] VITALS: BP 129/96; PULSE 116; RESP 12; TEMP 36.9; O2SAT 100
[2021-05-24 07:13] VITALS: BP 136/87; PULSE 113; RESP 18; O2SAT 100
[2021-05-24] MEDS: ondansetron HCL 4 MG/2 ML VIAL IVPUSH (07:13)
== END 2021-05-24 07:39 | disposition home or self-care (01) ==
PROVIDERS: Emergency Provider Student in an Organized Health Care Education/Training Program
DX: R11.15 Cyclical vomiting syndrome unrelated to migraine (principal); E86.0 Dehydration; J45.909 Unspecified asthma, uncomplicated
CPT/HCPCS: 36415; 80053; 81003; 81025; 83690; 85025; 96361; 96374; 96375; 99284; J1200; J2405; J2765

== ENCOUNTER 2021-05-25 05:20 | Observation (INO) | payer OTHER, SELFPAY ==
[2021-05-25 05:24] VITALS: BP 148/88; PULSE 88; RESP 16; TEMP 36.9; O2SAT 99; BMI 18.4
[2021-05-25] MEDS: Ondansetron ODT 4 MG TAB.RAPDIS TRANSLINGU (05:34)
[2021-05-25 05:39] LABS: Basophils Percent Auto 0.3 % (0-2); Eosinophils Percent Auto 0.2 % (0-4); Hematocrit 38.8 % (37.0-47.0); Hemoglobin 13.3 g/dl (12.0-16.0); Imm Gran Abs Auto 0.04 X10*3/uL (0.00-0.03); Imm Gran Pct Auto 0.3 % (0.0-0.4); Lymphocytes Absolute Auto 2.8 X10*3/uL (1.2-4.9); Lymphocytes Percent Auto 22.9 % (20-40); MANUAL DIFF FLAG NO; Mean Corpuscular HGB Conc 34.3 g/dl (31.0-35.0); Mean Corpuscular Hemoglobin 31.1 pg (27.0-33.0); Mean Corpuscular Volume 90.7 fL (80.0-98.0); Mean Platelet Volume 11.4 fL (9.4-12.3); Monocytes Percent Auto 8.2 % (2-11); Neutrophils Absolute Auto 8.4 x10*3/uL (2.0-8.3); Neutrophils Percent Auto 68.1 % (45-73); Platelet Count 267 X10*3/uL (160-400); Red Blood Count 4.28 X10*6/uL (4.20-5.50); Red Cell Distribution Width 12.5 % (11.0-16.0); White Blood Count 12.3 X10*3/uL (4.8-10.8)
[2021-05-25 05:58] LABS: Alanine Aminotransferase 10 U/L (0-31); Albumin Level 4.3 g/dL (3.5-5.0); Alkaline Phosphatase 53 U/L (39-117); Anion Gap 15 (12-20); Aspartate Amino Transferase 14 U/L (5-31); Bilirubin Total 1.2 mg/dL (0.0-1.0); Blood Urea Nitrogen 13 mg/dL (9-16); Calcium 9.7 mg/dL (8.4-10.2); Carbon Dioxide 23 mmol/L (22-29); Chloride 102 mmol/L (96-108); Creatinine Clr Calc Pharmacy 72.7; Estimated Glomerular Filt Rate > 60; Glucose Random 99 mg/dL (60-115); Potassium 3.6 mmol/L (3.3-5.1); Sodium 136 mmol/L (135-145); Total Protein 6.7 g/dL (6.5-8.0)
[2021-05-25 06:05] VITALS: BP 156/104; PULSE 80; RESP 18; O2SAT 100
--- NOTE | 2021-05-25 07:03 | ED.ABDPAIN ---
HPI - Abdominal Pain General Chief Complaint: Abdominal Pain Stated Complaint: Vomiting Time Seen by Provider: 05/25/21 06:47 Source: patient Mode of arrival: ambulatory Limitations: no limitations History of Present Illness HPI narrative: 26-year-old female came in for evaluation of persistent vomiting and abdominal pain. Patient's symptoms started 2 days ago after eating fish for good Wednesday at a restaurant, the whole family member ate the same fish was no other sick contacts, patient shortly started to have abdominal cramps and nausea vomiting with nonbloody watery diarrhea, patient also had chills but no fever, patient was seen and evaluated in the emergency department 2 days ago labs was remarkable for leukocytosis otherwise normal labs, patient was discharged home on oral anti emetic medication, patient could not tolerate p.o. intake at home return today for increased abdominal pain and persistence of vomiting, patient admitted to smoking marijuana on Wednesday, patient is vomiting in the emergency department and the emesis bag contains bile. Patient had previous hospitalization for similar symptoms. Related Data Previous Rx's Medication Instructions Recorded hydroxyzine HCl 25 mg tablet 25 mg PO TID PRN #30 tab 04/09/21 dextroamphetamine-amphetamine 10 10 mg PO DAILY #30 tab 05/07/21 mg tablet (Adderall) ondansetron 4 mg disintegrating 4 mg PO Q8H PRN #10 tab 05/24/21 tablet Allergies Allergy/AdvReac Type Severity Reaction Status Date / Time amoxicillin [AMOXICILLIN] Allergy Unknown RASH Verified 05/06/21 14:15 Iodinated Contrast Media Allergy Unknown Verified 05/06/21 14:15 shellfish derived Allergy Unknown Verified 05/06/21 14:15 Review of Systems Review of Systems All other systems are reviewed and are negative Constitutional: Reports as per HPI and Reports no additional constitutional complaints Eyes: Reports as per HPI and Reports no additional eye complaints Reports system reviewed and no additional complaints, except as documented Cardiovascular: Reports as per HPI and Reports no additional cardiovascular complaints Respiratory: Reports as per HPI and Reports no additional respiratory complaints Gastrointestinal: Reports as per HPI and Reports no additional gastrointestinal complaints Genitourinary: Reports no additional female genitourinary complaints Musculoskeletal: Reports no additional musculoskeletal complaints Skin/Breast: Reports system reviewed and no additional complaints, except as docu Psychiatric: Reports no additional psychiatric complaints Endocrine: Reports no additional endocrine complaints Hematologic/Lymphatic: Reports no additional hematologic/lymphatic complaints Allergic/Immunologic: Reports no additional allergic/immunologic complaints Reports system reviewed and no additional complaints, except as documented and Reports Abnormal speech present COUNT INCLUDES THE [facility] Past Medical History Medical History Abdominal pain Asthma Cyclic vomiting syndrome Intractable nausea and vomiting Surgical History No pertinent past surgical history Family History Family History Mother High blood pressure Father No problems noted. Other Substance abuse Social History Social History Housing: House Alcohol intake: never Patient Tobacco Use Status: Never used Tobacco Second Hand Smoke Exposure: No Use of substances other than those prescribed or required for medical reasons: No Substance Use Type: Marijuana Advance Directives: No service: No Current occupational status: unemployed Physical Exam ED Vital Signs: Vital Signs - 24 hr 05/25/21 05:24 05/25/21 06:05 05/25/21 10:55 Temperature 98.5 F Pulse Rate 88 80 85 Respiratory Rate 16 18 17 Blood Pressure 148/88 H 156/104 H 129/81 Pulse Oximetry 99 100 100 BMI result Body Mass Index 18.4 Vital signs have been reviewed as appeared to be correct. Blood pressure elevated. Heart rate normal. Respiration rate normal. Temperature normal. Oxygen saturation normal. Appearance: Alert. Oriented X3. No acute distress. Head: Normal external exam. Normocephalic. Atraumatic. No Edwards signs noted. No raccoon eyes noted Eyes: PERRLA. EOMI. Conjunctiva and sclera normal. Eyelids normal. ENT: TM's Normal. Pharynx normal. Uvula midline. Moist mucous membranes. No trismus noted. No drooling noted. No muffled voice noted. Neck: Normal inspection. Neck supple. FROM. No adenopathy. Thyroid Normal. No meningeal signs. No neck mass noted. CVS: Normal heart rate and rhythm. Heart sound normal. No murmurs noted. Pulses normal throughout. Respiratory: No respiratory distress. Painless inspiration. Breath sounds normal. No wheezes/rales/rhonchi noted. Chest nontender. No accessory muscle usage noted or decreased air movement noted. Abdomen: Soft, mild mid abdominal tenderness no rebound tenderness, no guarding. Bowel sounds normal in all 4 quadrants. No distention noted. No organomegaly noted. No visible injury noted. Back: No CVA tenderness. Full range of motion noted. Skin: Skin warm and dry. Normal skin color. Normal skin turgor. No rashes/lesions/lacerations noted. Extremities: No lower extremity edema. Extremities exhibit normal range of motion. Extremities nontender. Neuro: Oriented X 3. Cranial nerve exam: II-XII are grossly intact No motor deficit. No sensory deficit. Reflexes normal. Course Course Course Narrative: Assessment and plan. 26-year-old female history of cyclic vomiting syndrome has been hospitalized in the past for similar symptoms, had her 2nd visit to the ED for intractable vomiting and being unable to tolerate p.o. intake, patient received multiple doses of antiemetic medication and Ativan with IV hydration still unable to tolerate p.o. intake will admit the patient for IV hydration. Abdominal exam is just significant for upper abdominal/epigastric tenderness with no rebound tenderness, patient had CT abdomen and pelvis in the past which was unremarkable, CT today felt to be not necessary since physical exam is consistent with gastritis and WBCs is improving from 14.1 to 12.3. MDM - Abdominal Pain Lab Data Attestation: I reviewed the patient's lab results. Result diagrams: 05/25/21 05:34 05/25/21 05:35 Labs: Lab Results 05/25/21 05/25/21 Range/Units 05:34 05:35 WBC 12.3 H (4.8-10.8) X10*3/uL RBC 4.28 (4.20-5.50) X10*6/uL Hgb 13.3 (12.0-16.0) g/dl Hct 38.8 (37.0-47.0) % MCV 90.7 (80.0-98.0) fL MCH 31.1 (27.0-33.0) pg MCHC 34.3 (31.0-35.0) g/dl RDW 12.5 (11.0-16.0) % Plt Count 267 (160-400) X10*3/uL MPV 11.4 (9.4-12.3) fL Immature Gran % (Auto) 0.3 (0.0-0.4) % Neut % (Auto) 68.1 (45-73) % Lymph % (Auto) 22.9 (20-40) % [place] % (Auto) 8.2 (2-11) % Eos % (Auto) 0.2 (0-4) % Baso % (Auto) 0.3 (0-2) % Lymph # (Auto) 2.8 (1.2-4.9) X10*3/uL [place] # (Auto) 1.0 (0.1-1.2) X10*3/uL Eos # (Auto) 0.0 (0.0-0.4) X10*3/uL Baso # (Auto) 0.0 (0.0-0.2) X10*3/uL Abs Immat Gran (auto) 0.04 H (0.00-0.03) X10*3/uL Absolute Neuts (auto) 8.4 H (2.0-8.3) x10*3/uL Absolute Nucleated RBC 0.000 (0.0-0.012) X10*3/uL Nucleated RBC % (auto) 0.0 (0.0-0.2) /100WBC Sodium 136 (135-145) mmol/L Potassium 3.6 (3.3-5.1) mmol/L Chloride 102 (96-108) mmol/L Carbon Dioxide 23 (22-29) mmol/L Anion Gap 15 (12-20) BUN 13 (9-16) mg/dL Creatinine 0.84 (0.5-1.4) mg/dL Estim Creat Clear Calc 72.7 Estimated GFR > 60 Random Glucose 99 (60-115) mg/dL Calcium 9.7 (8.4-10.2) mg/dL Total Bilirubin 1.2 H (0.0-1.0) mg/dL AST 14 (5-31) U/L ALT 10 (0-31) U/L Alkaline Phosphatase 53 (39-117) U/L Total Protein 6.7 (6.5-8.0) g/dL Albumin 4.3 (3.5-5.0) g/dL Discharge Plan Discharge Clinical Impression: Cyclic vomiting syndrome, Intractable nausea and vomiting, Abdominal pain Patient Disposition: Admitted As Inpatient Prescriptions: No Action dextroamphetamine-amphetamine [Adderall] 10 mg tablet 10 mg PO DAILY Qty: 30 0RF ondansetron 4 mg tablet,disintegrating 4 mg PO Q8H PRN (Reason: nausea and vomiting) Qty: 10 0RF hydroxyzine HCl 25 mg tablet 25 mg PO TID PRN (Reason: itching) Qty: 30 0RF
[2021-05-25] MEDS: Morphine Sulfate 2 MG/ML CARTRIDGE 1 MG IVPUSH (07:27)
[2021-05-25] MEDS: Famotidine/PF 20 MG/2 ML VIAL IVPUSH (07:28)
[2021-05-25] MEDS: Metoclopramide HCl 10 MG/2 ML VIAL IVPUSH (07:28)
[2021-05-25] MEDS: Magnesium Hydrox/Alum Hydrox 30 ML ORAL.SUSP PO (07:29)
[2021-05-25] MEDS: 0.9 % Sodium Chloride 1,000 ML 999 ML IV (07:45)
[2021-05-25] MEDS: LORazepam 2 MG/ML VIAL 0.5 MG IVPUSH (07:52)
[2021-05-25 10:55] VITALS: BP 129/81; PULSE 85; RESP 17; O2SAT 100
[2021-05-25] MEDS: ondansetron HCL 4 MG/2 ML VIAL IVPUSH ×2 (11:54→14:24)
--- NOTE | 2021-05-25 12:17 | PHA.MEDREC ---
Pharmacy Consult ? Medication Reconciliation Pharmacy has completed the medication reconciliation. Spoke with pt. She only uses a half of tablet of adderall when she needs for school. also zofran or reglan as needed for nausea
--- NOTE | 2021-05-25 12:31 | P.HPHOSP_ITS ---
History of Present Illness Date of Service: 05/25/21 Chief Complaint: intractable nausea and vomiting 26-year-old female with history of cyclical vomiting syndrome associated with marijuana. She claimed that she has stop using marijuana sometime ago but recently it was her birthday and down she celebrated with for friend by smoking some and now is experiencing the symptoms of nausea and vomiting that are typi sean of her cyclical vomiting that is associated with marijuana use. She has not been able to tolerate food off liquid by mouth in the emergency room and therefore he has been observed in the hospital hydrate for hydration. electrolytes are within normal. WBC is slightly high at 12. Review of Systems Review of Systems: Gen: no fever Resp: no sob, no cough CV: no chest, no LEE, no leg edema GI: No n/v, no abd pain Neuro: No confusion Yes all other systems are reviewed and are negative [facility] Medical History Abdominal pain Asthma Cyclic vomiting syndrome Intractable nausea and vomiting Family History Mother High blood pressure Father No problems noted. Other Substance abuse Surgical History No pertinent past surgical history Social History Housing: House Alcohol intake: never Patient Tobacco Use Status: Never used Tobacco Second Hand Smoke Exposure: No Use of substances other than those prescribed or required for medical reasons: No Substance Use Type: Marijuana Advance Directives: No service: No Current occupational status: unemployed Meds Allergies Allergy/AdvReac Type Severity Reaction Status Date / Time amoxicillin [AMOXICILLIN] Allergy Unknown RASH Verified 05/06/21 14:15 Iodinated Contrast Media Allergy Unknown Verified 05/06/21 14:15 shellfish derived Allergy Unknown Verified 05/06/21 14:15 Active Medications: Current Medications Pharmacy Consult (Consult Rx Perform Med Rec) 1 each MISCELLANE ONCE PRN PRN Reason: Consult order Home Medications Medication Instructions Recorded Confirmed Last Taken Type dextroamphetamine-amphetamine 10 5 mg PO DAILY PRN 05/25/21 05/25/21 Unknown History mg tablet (Adderall) metoclopramide HCl 5 mg tablet 1 tab PO Q6H PRN 05/25/21 05/25/21 Unknown History Physical Exam Vital Signs and Narrative: Vital Signs: Last Vital Signs Temp 98.5 F 05/25/21 05:24 Pulse 85 05/25/21 10:55 Resp 17 05/25/21 10:55 BP 129/81 05/25/21 10:55 Pulse Ox 100 05/25/21 10:55 BMI result Body Mass Index 18.4 Results Labs CBC and Chem 7: 05/25/21 05:34 05/25/21 05:35 Labs: Laboratory Results - last 24 hr 05/25/21 05/25/21 05:34 05:35 MCV 90.7 MCH 31.1 MCHC 34.3 RDW 12.5 Plt Count 267 MPV 11.4 Immature Gran % (Auto) 0.3 Neut % (Auto) 68.1 Lymph % (Auto) 22.9 [place] % (Auto) 8.2 Eos % (Auto) 0.2 Baso % (Auto) 0.3 Lymph # (Auto) 2.8 [place] # (Auto) 1.0 Eos # (Auto) 0.0 Baso # (Auto) 0.0 Abs Immat Gran (auto) 0.04 H Absolute Neuts (auto) 8.4 H Absolute Nucleated RBC 0.000 Nucleated RBC % (auto) 0.0 Anion Gap 15 Estim Creat Clear Calc 72.7 Estimated GFR > 60 Random Glucose 99 Calcium 9.7 Total Bilirubin 1.2 H AST 14 ALT 10 Alkaline Phosphatase 53 Total Protein 6.7 Albumin 4.3 Assessment and Plan (1) Cyclic vomiting syndrome: Status: Acute Plan 26-year-old female with cyclical vomiting episode associated with marijuana -Hydrattion, antiemetics, advised to stay away from [facility]. Likely home in the morning Quality Stroke Does the patient have a stroke diagnosis?: No VTE Prior VTE?: No VTE Risk Level:: Medical - low VTE Device Contraindication: Treatment Not Tolerated VTE Drug Contraindication: Treatment Not Indicated
[2021-05-25 14:18] LABS: COVID-19 Test Negative (Negative); IDNOW Serial# 16C4AD1C
[2021-05-25] MEDS: Dextrose 5 % and 0.45 % NaCl 1,000 ML 100 ML IVCONT ×2 (14:38→23:37)
[2021-05-25 16:00] VITALS: BP 110/71; PULSE 93; RESP 18; TEMP 36.7; O2SAT 96
[2021-05-25 16:01] LABS: Appearance Urine CLEAR; Color Urine YELLOW; Glucose Urine UA NEG (NEG); Leukocyte Esterase Urine NEG (NEG); Nitrite Urine NEG (NEG); Specific Gravity - Urine 1.025 (1.005-1.025); Urine Blood NEG (NEG); Urine Ketones >=80 MG/DL (NEG); Urine Protein NEG (NEG-TRACE)
[2021-05-25 16:03] LABS: UPreg QC Valid YES; Urine Pregnancy NEGATIVE (NEGATIVE)
[2021-05-25 23:39] VITALS: BP 120/72; PULSE 78; RESP 17; TEMP 36.9; O2SAT 100
[2021-05-26] MEDS: ondansetron HCL 4 MG/2 ML VIAL IVPUSH (03:59)
[2021-05-26 08:00] VITALS: BP 134/91; PULSE 84; RESP 18; TEMP 36.9; O2SAT 99
--- NOTE | 2021-05-26 09:35 | P.DS_ITS ---
DS: Providers Provider Date of Service: 05/26/21 Date of admission: 05/25/21 12:49 Primary care physician: Unknown Physician DS: Diagnosis Discharge Diagnosis (1) Cyclic vomiting syndrome: Status: Acute DS: Summary Hospital Course Hospital Course: 26-year-old female with history of cyclical vomiting syndrome associated with marijuana. She claimed that she has stop using marijuana sometime ago but recently it was her birthday and down she celebrated with for friend by smoking some and now is experiencing the symptoms of nausea and vomiting that are typical of her cyclical vomiting that is associated with marijuana use. She has not been able to tolerate food off liquid by mouth in the emergency room and therefore he has been observed in the hospital hydrate for hydration. electrolytes are within normal. WBC is slightly high at 12. Hospital course: She was observed overnight, hydrated and given antiemtics as needed and is feeling better, she is tolerating diet and advised to stay way from all canabis products. She will be discharged home, and to follow up with PCP and if needed can have outpatient GI eval. Time Spent with Patient Time attestation: Total time spent providing and/or coordinating discharge services: Discharge coordination time: Greater than 30 minutes Quality: Safe Use of Opioids Does Pt have an Active Cancer Diagnosis on the Problem List?: No Quality: Stroke Does the patient have a stroke diagnosis?: No Physical Exam Vital Signs: Vital Signs: Last Vital Signs Temp 98.5 F 05/26/21 08:00 Pulse 84 05/26/21 08:00 Resp 18 05/26/21 08:00 BP 134/91 H 05/26/21 08:00 Pulse Ox 99 05/26/21 08:00 BMI result Body Mass Index 18.4 Const: Other: General: AO X 3, no acute distress Resp: CTA bilateral CVS: S1,S2,RRR GI: +BS, NT, no distention Skin: No rash Neuro: motor grossly intact Psych: appropriate affect DS: Data Data Completed and Pending Labs on day of discharge: Laboratory Results - last 24 hr 05/25/21 05/25/21 05/25/21 13:55 15:48 15:48 Urine Color YELLOW Urine Appearance CLEAR Urine pH 7.0 Ur Specific [place] 1.025 Urine Protein NEG Urine Glucose (UA) NEG Urine Ketones >=80 Urine Blood NEG Urine Nitrite NEG Ur Leukocyte Esterase NEG Urine Test NEGATIVE COVID-19 (RD) Negative COVID-19 Clin Com See Note Discharge Plan Discharge Anticipated Discharge Date/Time: 05/26/21 09:21 Patient Disposition: Home, Self-Care Discharge Diagnosis: Cyclical vomiting Referrals: Physician,Unknown J [Primary Care Provider] - 1 Week Discharge Medications: No Action hydroxyzine HCl 25 mg tablet 12.5 mg PO TID PRN (Reason: anxiety) Qty: 30 2RF dextroamphetamine-amphetamine [Adderall] 10 mg tablet 10 mg PO DAILY Qty: 30 0RF Mirena 20 mcg/24 hours (7 yrs) 52 mg intrauterine device intrauterine 0RF azithromycin [Zithromax] 250 mg tablet 250 mg PO DAILY 5 Days Qty: 5 0RF albuterol sulfate 90 mcg/actuation HFA aerosol inhaler 1 inh inhalation QID PRN (Reason: shortness of breath or wheezing) Qty: 6.7 1RF Discharge Orders: Discharge Order (Routine); Ordered 05/26/21 Ordered By: Giovanni Fernando Diet: advance to usual diet Activity on Discharge: As tolerated Stand Alone Forms: Patient Portal Discharge page Care Plan Goals: prevent recurrent hospitalization Health Concerns: Cyclical vomitting syndrome Plan of Treatment: take zofran, reglan as needed for nausea or vomitting, avoid canabbis products, ask your doctor to make an outpatient gastroenterology evaluation for you if you continue to have these episodes Assessment: as above Discharge Date/Time: 05/26/21 14:54
[2021-05-26] MEDS: Dextrose 5 % and 0.45 % NaCl 1,000 ML 100 ML IVCONT (09:53)
--- NOTE | 2021-05-26 13:10 | MHC.CM.PN ---
PT REPORTS SHE LIVES WITH HER MOTHER AND STEP-FATHER SHE REPORTS SHE IS INDEPENDENT WITH CARE SHE DENIES USE OF DME OR SERVICES PT COMPLETED A HPC TODAY NAMING HER OTHER, ENZO, HER AGENT PT REPORTS HER PCP IS [facility] AT [address] PT REPORTS SHE IS COVID-19 VAX'D X 3 PT WILL DC HOME TODAY WITH NO SERVICES SHE WILL DRIVE HERSELF
== END 2021-05-26 14:54 | disposition home or self-care (01) ==
LOC: HO.ED 12:03 → HO.EDOVER 12:57 → HO.S3 13:39
PROVIDERS: Admitting Provider Internal Medicine; Emergency Provider Emergency Medicine; Visit Provider Internal Medicine
DX: R11.15 Cyclical vomiting syndrome unrelated to migraine (principal); R11.2 Nausea with vomiting, unspecified; R10.9 Unspecified abdominal pain; F12.90 Cannabis use, unspecified, uncomplicated; Z20.822 Contact with and (suspected) exposure to COVID-19; Z88.1 Allergy status to other antibiotic agents; Z91.041 Radiographic dye allergy status; Z88.0 Allergy status to penicillin; Z91.013 Allergy to seafood
CPT/HCPCS: 36415; 80053; 81003; 81025; 85025; 87635; 96361; 96374; 96375; 96376; 99218; 99285; J2060; J2270; J2405; J2765